=== PATIENT | female | born 1975 | race African-American/Black ===

== ENCOUNTER 2024-10-30 16:28 | Inpatient (IN) | payer OTHER ==
[~2024-10-30] VITALS: Ht 160 cm; Wt 75.5 kg
--- NOTE | 2024-10-30 16:44 | ED.PDOC ---
HPI (NEURO) HPI Comments 49 y.o female with PMHx of HTN, presents to the ED for a chief complaint of dizziness/lightheadedness associated with blurred vision that started 2 hours ago. Patient reports feeling near syncopal episodes with no room spinning effect. Patient had similar episode 1.5 months ago and states BP has been high the pas couple of days. Patient presents with a BP of 188/112 with a repeat at 192/115. Patient denies any recent head trauma, chest pain, palpitations, nausea, vomiting, diarrhea. Time Seen by MD: 16:35 Reviewed Notes: Nurses Notes, Medications, Allergies Information Source: Patient Mode of Arrival: Ambulatory Severity: Moderate Timing: Hours (2) Duration: Since onset Onset: At rest Circumstances: Spontaneous Symptoms: Faintness, Change of vision History of: Hypertension Past Medical History PAST MEDICAL HISTORY: HTN Surgical History: DIGITAL ASSET MANAGER History: No Pertinent DIGITAL ASSET MANAGER History Family History Family History: Family hx of HTN Social History Smoker: Non-Smoker Alcohol: Occasionally Drugs: Denies Drug Use Lives In: Home Constitutional: denies: chills, diaphoresis, fatigue, fever, malaise, sweats, weakness, others EENTM: reports: blurred vision; denies: double vision, ear bleeding, ear discharge, ear drainage, ear pain, ear ringing, eye pain, eye redness, hearing loss, mouth pain, mouth swelling, nasal discharge, nose bleeding, nose congestion, nose pain, photophobia, tearing, throat pain, throat swelling, voice changes, others Respiratory: denies: cough, hemoptysis, orthopnea, SOB at rest, shortness of breath, SOB with excertion, stridor, wheezing, others Cardiovascular: reports: lightheadedness; denies: chest pain, dizzy spells, diaphoresis, Dyspnea on exertion, edema, irregular heart beat, left arm pain, palpitations, PND, syncope, others Gastrointestinal: denies: abdomen distended, abdominal pain, blood streaked bowels, constipated, diarrhea, dysphagia, difficulty swallowing, hematemesis, melena, nausea, poor appetite, poor fluid intake, rectal bleeding, rectal pain, vomiting, others Genitourinary: denies: abnormal vagina bleeding, burning, dyspareunia, dysuria, flank pain, frequency, hematuria, incontinence, pain, , vagina discharge, urgency, others Neurological: reports: dizziness; denies: fainting, headache, left sided numbness, left sided weakness, numbness, paresthesia, pre-existing deficit, right sided numbness, right sided weakness, seizure, speech problems, tingling, tremors, weakness, others Musculoskeletal: denies: back pain, gout, joint pain, joint swelling, muscle pain, muscle stiffness, neck pain, others Integumetry: denies: bruises, change in color, change in hair/nails, dryness, laceration, lesions, lumps, rash, wounds, others Allergic/Immunocompromised: denies: Difficulty Healing, Frequent Infections, Hives, Itching, others Hematologic/Lymphatic: denies: anemia, blood clots, easy bleeding, easy bruising, swollen glands, others Endocrine: denies: excessive hunger, excessive sweating, excessive thirst, excessive urination, flushing, intolerance to cold, intolerance to heat, unexplained weight gain, unexplained weight loss, others Psychiatric: denies: anxiety, bipolar disorder, depression, hopeless, panic disorder, schizophrenia, sleepless, suicidal, others All Other Systems: Reviewed and Negative Physical Exam General Appearance: Moderate Distress HEENT: Normal ENT Inspection, Pharynx Normal, TMs Normal Neck: Full Range of Motion, Non-Tender, Normal, Normal Inspection Respiratory: Chest Non-Tender, Lungs Clear, No Accessory Muscle Use, No Respiratory Distress, Normal Breath Sounds Cardiovascular: No Edema, No JVD, No Murmur, No Gallop, Normal Peripheral Pulses, Regular Rate/Rhythm Breast Exam: Deferred Gastrointestinal: No Organomegaly, Non Tender, No Pulsatile Mass, Normal Bowel Sounds, Soft Genitalia: Deferred Pelvic: Deferred Rectal: Deferred Extremities: No calf tenderness, Normal capillary refill, Normal inspection, Normal range of motion, Non-tender, No pedal edema Musculoskeletal : Apperance: Normal Neurologic: Alert, human performance technologist II-XII nml as Tested, No Motor Deficits, Normal Affect, Normal Mood, No Sensory Deficits Cerebellar Function: Normal Reflexes: Normal Skin: Dry, Normal Color, Warm Lymphatic: No Adenopathy EKG EKG : Pulse Rate (adult): 110 Cardiac Rhythm: ST Was a procedure done? Was a procedure done?: No Differential Diagnosis (SZ) Seizure: N/A General Weakness: Dehydration, Electrolyte imbalance, Meniere's disease, Vertigo: central, Vertigo: peripheral, Vestibular neuronitis X-Ray, Labs, Meds, VS Vital Signs Date Time Temp Pulse Resp B/P (MAP) Pulse Ox O2 Delivery O2 Flow Rate FiO2 10/30/24 18:49 142/96 10/30/24 17:15 180/104 10/30/24 16:51 110 10/30/24 16:48 110 10/30/24 16:46 98.0 130 18 188/112 (137) 97 98.0 Lab Test 10/30/24 18:46 10/30/24 17:30 Range/Units Urine Color Colorless Yellow Urine Clarity Clear Clear Urine pH 6.0 5.0-9.0 Urine Specific [place] 1.006 1.001-1.035 Urine Protein Negative Negative Urine Ketones Negative Negative Urine Blood 1+ H Negative /uL Urine Nitrite Negative Negative Urine Bilirubin Negative Negative Urine Urobilinogen Normal Negative mg/dL Urine Leukocyte Esterase Negative Negative /uL Urine RBC 2 0 - 4 /hpf Urine Microscopic WBC 1 0-5 /HPF Urine Squamous Epithelial Cells Few <5 /hpf Urine Bacteria None seen None Seen /hpf Urine Glucose Normal Normal mg/dL White Blood Count 6.1 4.4-10.8 10^3/uL Red Blood Count 4.62 4.0-5.20 10^6/uL Hemoglobin 14.5 12.2-16.2 g/dL Hematocrit 41.7 36.0-46.0 % Mean Corpuscular Volume 90.4 80.0-100.0 fL Mean Corpuscular Hemoglobin 31.3 28.0-32.0 pg Mean Corpuscular Hemoglobin Concent 34.7 32.0-36.0 g/dL Red Cell Distribution Width 15.0 H 11.8-14.3 % Platelet Count 318 140-450 10^3/uL Mean Platelet Volume 7.6 6.9-10.8 fL Neutrophils (%) (Auto) 83.0 H 37.0-80.0 % Lymphocytes (%) (Auto) 11.3 10.0-50.0 % Monocytes (%) (Auto) 4.5 0.0-12.0 % Eosinophils (%) (Auto) 1.0 0.0-7.0 % Basophils (%) (Auto) 0.2 0.0-2.0 % Neutrophils # (Auto) 5.1 1.6-8.6 10 ^3/uL Lymphocytes # (Auto) 0.7 0.4-5.4 10 ^3/uL Monocytes # (Auto) 0.3 0-1.3 10 ^3/uL Eosinophils # (Auto) 0.1 0-0.8 10 ^3/uL Basophils # (Auto) 0 0-0.2 10 ^3/uL Nucleated Red Blood Cells 0.2 % Sodium Level 139 136-145 mmol/L Potassium Level 3.2 L 3.5-5.1 mmol/L Chloride Level 101 98-107 mmol/L Carbon Dioxide Level 26 20-31 mmol/L Anion Gap 12 5-15 Blood Urea Nitrogen 7 L 9-23 mg/dL Creatinine 0.70 0.550-1.02 mg/dL Glomerular Filtration Rate Calc 107 >90 mL/min BUN/Creatinine Ratio 10.0 10.0-20.0 Serum Glucose 115 H 74-106 mg/dL Calcium Level 10.6 H 8.7-10.4 mg/dL Current Medications Medications (Trade) Dose Ordered Sig/Samara Route Start Time Stop Time Status Last Admin Clonidine HCl (Catapres Tablet) 0.2 mg ONCE ONCE PO 10/30/24 17:00 10/30/24 17:01 DC 10/30/24 17:15 CT HEAD IMPRESSION: No acute intracranial abnormality. The patient's blood pressure has remained elevated despite the clonidine The CBC and chemistry panel are within normal limits The troponin level was ordered because the patient is having some chest pain The urine test is negative At this time, the patient is being admitted She is still saying that she is having some heaviness on her chest. The patient will be also given aspirin. Images Reviewed?: Images reviewed and evaluated by me Time of 1ST Reevaluation: 16:44 Reevaluation 1ST: Unchanged Patient Education/Counseling: Diagnosis, Treatment, Prognosis Family Education/Counseling: Diagnosis, Treatment, Prognosis Departure 1 Departure Time of Disposition: 20:43 Impression: Primary Impression: Accelerated hypertension Additional Impression: Acute chest pain Disposition: ADMITTED INPATIENT Admit to: Tele Condition: Fair Critical Care Note Critical Care Time?: Yes (45 min-critical care time only) Stability Stability form required: Yes Unstable for transfer: Telemetry monitoring (Telemetry monitoring required), ED Physician Assesment (Clinical assesment) I personally scribed for JARVIS LR MD ([email or web address]) on 10/30/24 at 16:44. Electronically submitted by Liss Lau ([facility]). I personally scribed for JARVIS LR MD ([email or web address]) on 10/30/24 at 16:51. Electronically submitted by Liss Lau ([facility]). I personally scribed for JARVIS LR MD ([email or web address]) on 10/30/24 at 17:29. Electronically submitted by Liss Lau ([facility]). JARVIS LR MD Oct 30, 2024 16:44
--- NOTE | 2024-10-30 16:49 | ECG ---
[facility] Test Date: 2024-10-30 Test Time: 16:48:29 Pat Name: LE OLIVER Department: [facility] ED Patient ID: [id number] Room: 0222T Gender: F Pelt Grader: gp : 1975 Requested By: JARVIS LR Order Number: [id number] Reading MD: Oscar Bowers Measurements Intervals [place] Rate: 110 P: 58 TX: 171 QRS: 62 QRSD: 99 T: 18 QT: 346 QTc: 469 Interpretive Statements Sinus tachycardia Anterior infarct, age indeterminate Electronically Signed On 11-01-2024 17:50:45 PDT by Oscar Bowers Please click the below link to view image of tracing.
--- NOTE | 2024-10-30 17:28 | DVH ---
CLINICAL HISTORY: dizziness TECHNIQUE: Helical imaging carried out from skull base to vertex without intravenous contrast. This e xam was performed according to our departmental dose optimization program. Up-to-date CT equipment an d radiation dose reduction techniques are utilized as appropriate. CTDIVol: 54.8 mGy DLP: 970.44 mGy-cm WID: COMPARISON: None FINDINGS: The ventricles and subarachnoid spaces are normal in size and configuration. There is no midline katia ft or mass effect. The funez white matter interfaces are maintained. The basal cisterns are patent. Th ere is no evidence of acute intracranial hemorrhage or extra-axial fluid collection. The mastoid air cells and visualized paranasal sinuses are well-aerated. IMPRESSION: No acute intracranial abnormality.
[2024-10-30 18:08] LABS: Chloride 101 mmol/L (98-107); Sodium 139 mmol/L (136-145)
[2024-10-30 18:09] LABS: Anion Gap 12 (5-15); Carbon Dioxide 26 mmol/L (20-31)
[2024-10-30 18:14] LABS: BUN/Creatinine Ratio 10.0 (10.0-20.0)
[2024-10-30 18:25] LABS: Blood Urea Nitrogen 7 mg/dL (9-23); Calcium 10.6 mg/dL (8.7-10.4); Glucose 115 mg/dL (74-106); Potassium 3.2 mmol/L (3.5-5.1)
[2024-10-30 18:30] LABS: Hematocrit 41.7 % (36.0-46.0); Hemoglobin 14.5 g/dL (12.2-16.2); Mean Corpuscular Hemoglobin 31.3 pg (28.0-32.0); Mean Corpuscular Volume 90.4 fL (80.0-100.0); Nucleated Red Blood Cells % 0.2 %
[2024-10-30 20:04] LABS: Urine Protein, UAD Negative (Negative)
[2024-10-30] MEDS: NITROGLYCERIN 2% OINT 1GM PKG TD ONE (22:26)
[2024-10-30] MEDS ORDERED: ONDANSETRON HCL 4 MG/2 ML VIAL IV PRN (23:45)
--- NOTE | 2024-10-30 23:49 | DVHHPRES ---
History of Present Illness Resident Creating Document: AGATA HALL RESIDENT History of Present Illness Sarah Chu is a 49 y.o female with past medical history of of hypertension. The patient presented to the ED for history of 1 day of dizziness, blurry vision and chest palpitation, associated with lightheadedness and a near syncope episode. The patient had similar episode 1 months ago and states that her blood pressure readings at home have been high lately. Patient report that she is compliant with In the ED the BP was 188/112 with a repeat at 192/115 HR 110. The patient denies chest pain, nausea, fever, chills, vomiting, diarrhea or other symptoms. Cardiovascular: HTN Past Surgical History: Family History: None Smoke: No ALCOHOL: occassional Drugs: None Lives: with Family Review of Systems Constitutional: No: Fever, Chills, Sweats, Weakness, Malaise, Other Eyes: No: Pain, Vision change, Conjunctivae inflammation, Eyelid inflammation, Other, Redness ENT: No: Ear pain, Ear discharge, Nose pain, Nose discharge, Nose congestion, Mouth pain, Mouth swelling, Throat pain, Throat swelling, Other Respiratory: No: Cough, Dry, Shortness of breath, SOB with excertion, Wheezing, Hemoptysis, Pleuritic Pain, Sputum, Wheezing, Other Cardiovascular: Palpitations, Lt Headedness Gastrointestinal: No: Nausea, Vomiting, Abdominal Pain, Diarrhea, Constipation, Melena, Hematochezia, Other Genitourinary: No Dysuria, No Frequency, No Incontinence, No Hematuria, No Retention, No Other Musculoskeletal: No: other, neck pain, shoulder pain, arm pain, back pain, hand pain, leg pain, foot pain Skin: No: Rash, Lesions, Jaundice, Bruising, Other Neurological: No: Weakness, Numbness, Incoordination, Change in speech, Confusion, Seizures, Other Allergies: Coded Allergies: NO KNOWN ALLERGIES (Unverified , 10/30/24) Medications Current Medications Medications Dose Ordered Sig/Samara Route Start Time Stop Time Status Last Admin Dose Admin Ondansetron HCl 4 mg Q4HP PRN IV 10/30/24 23:45 UNV Enoxaparin Sodium 40 mg DAILY SC 10/31/24 10:00 UNV Pantoprazole Sodium 40 mg DAILY PO 10/31/24 10:00 UNV Metoprolol Succinate 50 mg BID PO 10/31/24 10:00 UNV Amlodipine Besylate 10 mg DAILY PO 10/31/24 10:00 UNV Exam Vital Signs Vital Signs Date Time Temp Pulse Resp B/P (MAP) Pulse Ox O2 Delivery O2 Flow Rate FiO2 10/30/24 22:29 98 16 94 Room Air 10/30/24 22:29 97.8 132/93 (106) 97.8 General Appearance: Alert, Oriented X3, Cooperative, No acute distress HEENT: Atraumatic, PERRLA, Mucous membr. moist/pink Respiratory: Clear to auscultation, Normal air movement Cardiovascular: Regular rate, Normal S1, Normal S2, No murmurs, Other Abdominal: Normal bowel sounds, Soft, No tenderness Extremities: No clubbing, No cyanosis, No edema, No tenderness/swelling Skin: No rashes, No breakdown, No significant lesion Neuro: Normal gait, Normal speech, Strength at 5/5 X4 ext, Normal tone, Sensation intact, Cranial nerves 3-12 NL Psych/Mental Status: Mental status NL, Mood NL Labs/Xrays Labs Test 10/30/24 20:58 10/30/24 18:46 10/30/24 17:30 Range/Units Troponin I High Sensitivity < 3 L </=34 ng/L Urine Color Colorless Yellow Urine Clarity Clear Clear Urine pH 6.0 5.0-9.0 Urine Specific [place] 1.006 1.001-1.035 Urine Protein Negative Negative Urine Ketones Negative Negative Urine Blood 1+ H Negative /uL Urine Nitrite Negative Negative Urine Bilirubin Negative Negative Urine Urobilinogen Normal Negative mg/dL Urine Leukocyte Esterase Negative Negative /uL Urine RBC 2 0 - 4 /hpf Urine Microscopic WBC 1 0-5 /HPF Urine Squamous Epithelial Cells Few <5 /hpf Urine Bacteria None seen None Seen /hpf Urine Glucose Normal Normal mg/dL White Blood Count 6.1 4.4-10.8 10^3/uL Red Blood Count 4.62 4.0-5.20 10^6/uL Hemoglobin 14.5 12.2-16.2 g/dL Hematocrit 41.7 36.0-46.0 % Mean Corpuscular Volume 90.4 80.0-100.0 fL Mean Corpuscular Hemoglobin 31.3 28.0-32.0 pg Mean Corpuscular Hemoglobin Concent 34.7 32.0-36.0 g/dL Red Cell Distribution Width 15.0 H 11.8-14.3 % Platelet Count 318 140-450 10^3/uL Mean Platelet Volume 7.6 6.9-10.8 fL Neutrophils (%) (Auto) 83.0 H 37.0-80.0 % Lymphocytes (%) (Auto) 11.3 10.0-50.0 % Monocytes (%) (Auto) 4.5 0.0-12.0 % Eosinophils (%) (Auto) 1.0 0.0-7.0 % Basophils (%) (Auto) 0.2 0.0-2.0 % Neutrophils # (Auto) 5.1 1.6-8.6 10 ^3/uL Lymphocytes # (Auto) 0.7 0.4-5.4 10 ^3/uL Monocytes # (Auto) 0.3 0-1.3 10 ^3/uL Eosinophils # (Auto) 0.1 0-0.8 10 ^3/uL Basophils # (Auto) 0 0-0.2 10 ^3/uL Nucleated Red Blood Cells 0.2 % Sodium Level 139 136-145 mmol/L Potassium Level 3.2 L 3.5-5.1 mmol/L Chloride Level 101 98-107 mmol/L Carbon Dioxide Level 26 20-31 mmol/L Anion Gap 12 5-15 Blood Urea Nitrogen 7 L 9-23 mg/dL Creatinine 0.70 0.550-1.02 mg/dL Glomerular Filtration Rate Calc 107 >90 mL/min BUN/Creatinine Ratio 10.0 10.0-20.0 Serum Glucose 115 H 74-106 mg/dL Calcium Level 10.6 H 8.7-10.4 mg/dL SEPSIS Sepsis Screen Date sepsis recognized/suspect: Oct 30, 2024 Time Sepsis recognized/suspect: 2230 Recent Procedure: No On Antibiotic Therapy: No Respiratory Rate >20: No Heart Rate >90: Yes Temp<36 C (96.8 F) or >38.3 C: No SBP <90 or MAP <65 mmHG: No New Acute Mental Status Change: No Is the patient on CPAP, BIPAP,: No Physician Orders Head Without Contrast (10/30/24 16:46) Troponin-I Hs (10/30/24 23:45) Admit (10/30/24 23:33) Code Status (10/30/24 23:33) Vital Signs .PER UNIT PROTOCOL (10/30/24 23:33) Review Orders With Adm. (10/30/24 23:33) Bedrest With Bathroom Privileg (10/30/24 23:33) Notify Md Of Changes From Base (10/30/24 23:33) Advance Directive (10/30/24 23:33) Patient Condition (10/30/24:33) Allergies (10/30/24:) Ondansetron Hcl (Zofran) (10/30/24 23:45) Enoxaparin Sodium (Lovenox) (10/31/24 10:00) Notify Md Of Changes From Base (10/30/24 23:33) Ice Skating Coach For 24 Hours (10/30/24:33) Rhythm Strips Once Every Shift (10/30/24 23:33) Pantoprazole Tablet (Protonix Tablet) (10/31/24 10:00) Potassium Effervesent Tab (Klor-Con/Ef) (10/30/24 23:45) Complete Blood Count (10/31/24 04:00) Basic Metabolic Panel (10/31/24 04:00) Chest Xray 1 View (10/30/24 23:33) Metoprolol Xl Succinate (Toprol Xl) (10/31/24 10:00) Amlodipine Tablet (Norvasc Tablet) (10/31/24 10:00) B-Type Natriuretic Peptide (10/30/24 23:33) Drug Screen (10/30/24 23:47) Urinalysis (10/30/24 23:47) Vital Signs Date Time Temp Pulse Resp B/P (MAP) Pulse Ox O2 Delivery O2 Flow Rate FiO2 10/30/24 22:29 98 16 94 Room Air 10/30/24 22:29 97.8 98 16 132/93 (106) 94 97.8 10/30/24 18:49 142/96 10/30/24 17:15 180/104 10/30/24 16:51 110 10/30/24 16:48 110 10/30/24 16:46 98.0 130 18 188/112 (137) 97 98.0 Laboratory Tests Test 10/30/24 17:30 White Blood Count 6.1 10^3/uL (4.4-10.8) Medications Medications Dose Ordered Sig/Samara Route Start Time Stop Time Status Last Admin Dose Admin Aspirin 162 mg ONCE ONCE PO 10/30/24 20:45 10/30/24 20:46 DC 10/30/24 22:26 162 MG Clonidine HCl 0.2 mg ONCE ONCE PO 10/30/24 17:00 10/30/24 17:01 DC 10/30/24 17:15 0.2 MG Assessment/Plan Assessment/Plan #Hypertensive urgency BP 192/115 Clonidine 0.2mg Troponins BNP EKG Chest X-ray #Uncontrolled hypertension Amlodipine 10mg po qd Metoprolol succinate 50mg bid #Hypokalemia Potassium correction Cardiac diet DVT prophylaxis PUD prophylaxis Protonic Goals of care discussed with the patient > 35 min. Discussed plan of care with Dr. Gonzalez Code status: Full code PCP: Jose Antonio Plan discussed with: Patient and , patients agrees with the plan. Plan discussed with: Patient, Spouse My Orders Orders - AGATA HALL RESIDENT Procedure Category Date Status Time Admit ADMIT 10/30/24 Transmitted 23:33 Code Status CODE 10/30/24 Transmitted 23:33 Vital Signs [facility] 10/30/24 In Process 23:33 Review Orders With [facility] 10/30/24 In Process Adm. 23:33 Bedrest With Bathroom [facility] 10/30/24 In Process Privileg 23:33 Notify Of Changes [facility] 10/30/24 In Process From Base 23:33 Advance Directive [facility] 10/30/24 In Process 23:33 Patient Condition ORDERS 10/30/24 Transmitted 23:33 Allergies [facility] 10/30/24 In Process 23:33 Ondansetron Hcl [facility] 10/30/24 Logged (Zofran) 23:45 Enoxaparin Sodium PHA 10/31/24 Logged (Lovenox) 10:00 Notify Of Changes [facility] 10/30/24 In Process From Base 23:33 Ice Skating Coach For [facility] 10/30/24 In Process 24 Hours 23:33 Rhythm Strips Once [facility] 10/30/24 In Process Every Shift 23:33 Pantoprazole Tablet PHA 10/31/24 Logged (Protonix Tablet) 10:00 Potassium Effervesent PHA 10/30/24 Logged Tab (Klor-Con/Ef) 23:45 Complete Blood Count LAB 10/31/24 Verified 04:00 Basic Metabolic Panel LAB 10/31/24 Verified 04:00 Chest Xray 1 View XY 10/30/24 Logged 23:33 Metoprolol Xl PHA 10/31/24 Logged Succinate (Toprol Xl) 10:00 Amlodipine Tablet PHA 10/31/24 Logged (Norvasc Tablet) 10:00 B-Type Natriuretic LAB 10/30/24 Logged Peptide 23:33 Drug Screen LAB 10/30/24 Transmitted 23:47 Urinalysis LAB 10/30/24 Transmitted 23:47 Problem List: (1) Hypertensive urgency Common Visit Codes: [id number] INP/OBS CARE (HIGH) Secondary Visit Codes: [id number] CARE PLAN 30 MINUTES AGATA HALL RESIDENT Oct 30, 2024 23:49
[2024-10-31] VITALS (9 sets, daily range): BP systolic 134–155; BP diastolic 69–97; PULSE 63–89; RESP 16–18; TEMP 97.4–98.3; O2SAT 95–100
[2024-10-31] MEDS: POTASSIUM EFFERVESENT TAB 25 MEQ GT ONE (00:56)
--- NOTE | 2024-10-31 01:12 | DVH ---
CHEST RADIOGRAPH Indication: Hypertensive urgency Technique: Single frontal view of the chest was obtained COMPARISON: None FINDINGS: Lines and Tubes: None Lungs: Clear Pleura: No effusion. No pneumothorax. Cardiomediastinal contours: Unremarkable Bones: Unremarkable IMPRESSION: 1. No acute disease.
[2024-10-31 05:35] LABS: Hematocrit 38.1 % (36.0-46.0); Hemoglobin 13.2 g/dL (12.2-16.2); Mean Corpuscular Hemoglobin 31.1 pg (28.0-32.0); Mean Corpuscular Volume 89.6 fL (80.0-100.0); Nucleated Red Blood Cells % 0.2 %
[2024-10-31 05:57] LABS: Chloride 102 mmol/L (98-107); Sodium 140 mmol/L (136-145)
[2024-10-31 05:58] LABS: Anion Gap 12 (5-15); Carbon Dioxide 26 mmol/L (20-31)
[2024-10-31 05:59] LABS: Calcium 9.4 mg/dL (8.7-10.4)
[2024-10-31 06:03] LABS: BUN/Creatinine Ratio 11.4 (10.0-20.0); Glucose 89 mg/dL (74-106)
[2024-10-31 06:10] LABS: Blood Urea Nitrogen 5 mg/dL (9-23); Potassium 3.3 mmol/L (3.5-5.1)
[2024-10-31] MEDS ORDERED: AMLO1TAB23 PO (06:22)
[2024-10-31] MEDS: PANTOPRAZOLE 40 MG TAB PO SCH (09:58)
[2024-10-31] MEDS ORDERED: ENOXAPARIN SOD 40 MG/0.4 ML SYRINGE SC SCH (10:00)
[2024-10-31] MEDS ORDERED: METOPROLOL SUCCINATE XL 50 MG TAB PO SCH ×2 (10:00)
[2024-10-31 10:12] LABS: Triglycerides 142 mg/dL (< 150)
[2024-10-31 10:18] LABS: Cholesterol 219 mg/dL (< 200); HDL Cholesterol 86 mg/dL (40-59)
[2024-10-31] MEDS: POTASSIUM CHL 20 Meq TABLET PO ONE (12:00)
[2024-10-31] MEDS: MAGNESIUM OXIDE 400 MG TAB PO ONE (14:21)
[2024-10-31] MEDS: ERGOCALCIFEROL 50,000 UNIT(1.25MG) CAP PO SCH (14:21)
[2024-10-31] MEDS ORDERED: hydrALAZINE HCL 20 MG/ML VL IV PRN (16:00)
--- NOTE | 2024-10-31 16:50 | DVHPNRES ---
Progress Note Date Seen: Oct 31, 2024 Resident Creating Document: CHICA MCCONNELL RESIDENT Medical Necessity Reason Pt with a Central, PICC or Fol: No Subjective Review of Systems 49-year-old female Sarah Chu with a past medical of hypertension for 1 year on amlodipine 10 mg he yesterday to the emergency [facility] with complains of blurring of vision and dizziness. Patient reports that she felt blurring of vision in the afternoon and after an hour she had dizziness while walking. Patient laid down with the dizziness would not go away so she came to the emergency room. Patient denies any headache, shortness of breath, chest pain, nausea, vomiting, high blood pressure Cough. On arrival to the ED her blood pressure was 188/ 112 G. Patient reports that this has happened a month ago as well. She usually checks her blood pressure alternate days which is the 140s/90s. PMH: Hypertension, asthma PSH: 1 section Social history: Patient denies smoking or taking any drugs. She reports drinking on and off on alternate days Tory as/cocktail. Family history: Reviewed and noncontributory to the case Allergies: None ROS: Patient was seen and examined by me at the bedside. Overnight events were reviewed. Patient reports that she is feeling better and that the blurring of vision is gone. She says she is able to walk normally. Rest of the ROS is negative.We ave ordered a lipid panel today. Objective vital signs Vital Sign Date Time Temp Pulse Resp B/P (MAP) Pulse Ox O2 Delivery O2 Flow Rate FiO2 10/31/24 16:14 98 Room Air* 0 21 10/31/24 12:47 80 155/97 (116) 10/31/24 09:00 98.1 98.1 10/31/24 05:00 16 medications Current Medications Medications Dose Ordered Sig/Samara Route Start Time Stop Time Status Last Admin Dose Admin Ondansetron HCl 4 mg Q4HP PRN IV 10/30/24 23:45 Pantoprazole Sodium 40 mg DAILY PO 10/31/24 10:00 10/31/24 09:58 40 MG Amlodipine Besylate 10 mg DAILY PO 10/31/24 10:00 10/31/24 09:58 10 MG Metoprolol Succinate 50 mg BID PO 10/31/24 10:00 Hold Ergocalciferol 50,000 unit Q7D PO 10/31/24 13:30 10/31/24 14:21 50,000 UNIT Lisinopril 2.5 mg DAILY PO 11/01/24 10:00 Hydralazine HCl 10 mg Q6HPRN PRN IV 10/31/24 16:00 Examination Pt is lying on bed General Appearance: Alert, Oriented X3, Cooperative, Not in acute distress HEENT: Atraumatic, Mucous membranes moist/pink Respiratory: Clear to auscultation, Normal air movement, No added sounds Cardiovascular: Regular rate, Normal S1, Normal S2, No murmurs Abdominal: Active bowel sounds, Soft, no distention, no tenderness Extremities: No edema, Normal pulses, No tenderness/swelling Skin: No Significant rash, except past surgical scars Neuro: Normal speech, sensorimotor deficits none Psych/Mental Status: Mental status NL, Mood NL Nurse was there as paint mixer hand during examination laboratory and microbiology Laboratory Tests 10/31/24 04:29 Test 10/31/24 04:29 Range/Units Serum Glucose 89 74-106 mg/dL Labs and/or images reviewed: Labs reviewed by me, Image(s) reviewed by me Problem List/Assessment/Plan Problem List/Assessment/Plan #Hypertensive urgency -BP 192/115 -Clonidine 0.2mg -Troponins normal -BNP 3.64 -EKG Sinus tachycardia -Chest X-ray: No acute disease. -IV hydralazine p.r.n. if SBP> 170 #Uncontrolled hypertension -Amlodipine 10mg po qd -lisinopril 2.5 mg od #Hypokalemia -Potassium correction # hyperlipidemia -ldl 121, cholesterol 219, HDL 86, triglyceride 142 - 10 year ASCVD risk 8.3 5% - atorvastatin 40 mg p.o. daily HS GI prophylaxis: Protonix 40 mg DVT prophylaxis: Lovenox 40 mg Diet: Cardiac diet Goals of care discussed with the patient for more than 27 minutes: Full code status Case discussed with Dr. Friend patient and nurse. Plan discussed with: Patient, Other (rn) My Orders My Orders Orders - CHICA MCCONNELL RESIDENT Procedure Category Date Status Time Lisinopril Tablet PHA 11/01/24 In Process (Zestril Tablet) 10:00 Hydralazine Injection PHA 10/31/24 In Process (Apresoline Inject 16:00 Date of Service: Oct 31, 2024 Billing Provider: FRIDA MAY MD Common Visit Codes: [id number] INP/OBS CARE(HIGH) CHICA MCCONNELL RESIDENT Oct 31, 2024 16:50 FRIDA MAY MD Nov 01, 2024 02:03
[2024-10-31] MEDS: LISINOPRIL 5 MG TAB PO ONE (18:40)
[2024-10-31] MEDS: ATORVASTATIN 20 MG TAB PO SCH (22:21)
[2024-11-01 01:00] VITALS: BP 114/76; PULSE 81; RESP 16; TEMP 98.1; O2SAT 98
[2024-11-01 07:02] LABS: Albumin 4.3 g/dL (3.2-4.8); Alkaline Phosphatase 96 U/L (46-116); Anion Gap 9 (5-15); BUN/Creatinine Ratio 10.6 (10.0-20.0); Calcium 9.9 mg/dL (8.7-10.4); Carbon Dioxide 27 mmol/L (20-31); Chloride 104 mmol/L (98-107); Glucose 102 mg/dL (74-106); Potassium 3.7 mmol/L (3.5-5.1); Sodium 140 mmol/L (136-145); Total Protein 6.6 g/dL (5.7-8.2)
[2024-11-01 07:03] LABS: Alanine Aminotransferase 117 U/L (7-40); Bilirubin, Total 1.1 mg/dL (0.2-1.0); Blood Urea Nitrogen 7 mg/dL (9-23)
[2024-11-01 08:00] VITALS: PULSE 88; O2SAT 97
[2024-11-01 09:00] VITALS: BP 129/96; PULSE 73; RESP 16; TEMP 98.4; O2SAT 95
[2024-11-01] MEDS: LISINOPRIL 5 MG TAB PO SCH (09:55)
--- NOTE | 2024-11-01 11:13 | DVHDSRES ---
Discharge Summary Date of Admission Resident Creating Document: CHICA MCCONNELL RESIDENT Oct 30, 2024 at 23:33 Date of Discharge: Nov 01, 2024 Admitting Diagnosis #Hypertensive urgency Labs/Diagnostic Data: Laboratory Results Test 11/01/24 06:10 10/31/24 04:29 10/30/24 23:55 10/30/24 18:46 Sodium Level 140 mmol/L (136-145) Potassium Level 3.7 mmol/L (3.5-5.1) Chloride Level 104 mmol/L (98-107) Carbon Dioxide Level 27 mmol/L (20-31) Anion Gap 9 (5-15) Blood Urea Nitrogen 7 mg/dL (9-23) Creatinine 0.66 mg/dL (0.550-1.02) Glomerular Filtration Rate Calc 108 mL/min (>90) BUN/Creatinine Ratio 10.6 (10.0-20.0) Serum Glucose 102 mg/dL (74-106) Calcium Level 9.9 mg/dL (8.7-10.4) Total Bilirubin 1.1 mg/dL (0.2-1.0) Aspartate Amino Transferase (AST) 69 U/L (13-40) Alanine Aminotransferase (ALT) 117 U/L (7-40) Alkaline Phosphatase 96 U/L (46-116) Total Protein 6.6 g/dL (5.7-8.2) Albumin 4.3 g/dL (3.2-4.8) White Blood Count 5.9 10^3/uL (4.4-10.8) Red Blood Count 4.25 10^6/uL (4.0-5.20) Hemoglobin 13.2 g/dL (12.2-16.2) Hematocrit 38.1 % (36.0-46.0) Mean Corpuscular Volume 89.6 fL (80.0-100.0) Mean Corpuscular Hemoglobin 31.1 pg (28.0-32.0) Mean Corpuscular Hemoglobin Concent 34.7 g/dL (32.0-36.0) Red Cell Distribution Width 15.0 % (11.8-14.3) Platelet Count 271 10^3/uL (140-450) Mean Platelet Volume 8.0 fL (6.9-10.8) Neutrophils (%) (Auto) 69.2 % (37.0-80.0) Lymphocytes (%) (Auto) 20.9 % (10.0-50.0) Monocytes (%) (Auto) 6.2 % (0.0-12.0) Eosinophils (%) (Auto) 3.2 % (0.0-7.0) Basophils (%) (Auto) 0.5 % (0.0-2.0) Neutrophils # (Auto) 4.1 10 ^3/uL (1.6-8.6) Lymphocytes # (Auto) 1.2 10 ^3/uL (0.4-5.4) Monocytes # (Auto) 0.4 10 ^3/uL (0-1.3) Eosinophils # (Auto) 0.2 10 ^3/uL (0-0.8) Basophils # (Auto) 0 10 ^3/uL (0-0.2) Nucleated Red Blood Cells 0.2 % Hemoglobin A1c 5.3 % A1C (<5.7) Magnesium Level 1.8 mg/dL (1.6-2.6) Triglycerides Level 142 mg/dL (< 150) Cholesterol Level 219 mg/dL (< 200) LDL Cholesterol 121 mg/dL (< 100) HDL Cholesterol 86 mg/dL (40-59) Vitamin B12 Level 636 pg/mL (211-911) Vitamin D 25-Hydroxy 9.7 ng/mL (30.0-100) Thyroid Stimulating Hormone (TSH) 3.77 uIU/mL (0.55-4.78) Troponin I High Sensitivity < 3 ng/L (</=34) Urine Color Colorless (Yellow) Urine Clarity Clear (Clear) Urine pH 6.0 (5.0-9.0) Urine Specific [place] 1.006 (1.001-1.035) Urine Protein Negative (Negative) Urine Ketones Negative (Negative) Urine Blood 1+ /uL (Negative) Urine Nitrite Negative (Negative) Urine Bilirubin Negative (Negative) Urine Urobilinogen Normal mg/dL (Negative) Urine Leukocyte Esterase Negative /uL (Negative) Urine RBC 2 /hpf (0 - 4) Urine Microscopic WBC 1 /HPF (0-5) Urine Squamous Epithelial Cells Few /hpf (<5) Urine Bacteria None seen /hpf (None Seen) Urine Glucose Normal mg/dL (Normal) Test 10/30/24 17:30 B-Type Natriuretic Peptide 3.64 pg/mL (0-100) Other Laboratory Tests 11/01/24 06:10 10/31/24 04:29 Brief Hx & Hospital Course: 49-year-old female Sarah Chu with a past medical of hypertension for 1 year on amlodipine 10 mg he yesterday to the emergency [facility] with complains of blurring of vision and dizziness. Patient reports that she felt blurring of vision in the afternoon and after an hour she had dizziness while walking. Patient laid down with the dizziness would not go away so she came to the emergency room. Patient denies any headache, shortness of breath, chest pain, nausea, vomiting, high blood pressure Cough. On arrival to the ED her blood pressure was 188/ 112 G. Patient reports that this has happened a month ago as well. She usually checks her blood pressure alternate days which is the 140s/90s. PMH: Hypertension, asthma PSH: 1 section Social history: Patient denies smoking or taking any drugs. She reports drinking on and off on alternate days Tory as/cocktail. Family history: Reviewed and noncontributory to the case Allergies: None brief history of hospitalization: Patient came in with hypertensive urgency with a high BP of 192/ 115 mmHg. A clonidine was given and troponins were measured which came back normal. BNP was 3.64. EKG showed sinus tachycardia. We did a chest x-ray that showed no acute disease. IV hydralazine PRN was ordered if SBP>170 mmHg. For her uncontrolled hypertension we continued amlodipine 10 mg p.o. and added lisinopril 2.5 mg OD. For patient's hypokalemia we corrected the potassium levels and for hyperlipidemia with LDL 121, cholesterol 219, HDL 86, triglyceride 142 the 10 year ASCVD risk was 8.35% so we started atorvastatin 40 mg p.o. daily HS. Patient is now stable for discharge. We are discharging her with continuation of her amlodipine 10 mg and have added lisinopril 2.5 mg once a day and rosuvastatin 20 mg HS daily. Patient has been counseled regarding the site of fact of lisinopril which might be cough, angioedema and if she has shortness of breath, throat closes up, there swelling to visit the emergency department right away. Patient has also been counseled regarding statin myopathy and to hydrate herself and Co Q10 [id number] medication will help. We have also counseled her regarding a low-salt diet, to decrease stressors and the need of adherence to medication. Patient has communicated understanding and is now stable for discharge. Pt is lying on bed General Appearance: Alert, Oriented X3, Cooperative, Not in acute distress HEENT: Atraumatic, Mucous membranes moist/pink Respiratory: Clear to auscultation, Normal air movement, No added sounds Cardiovascular: Regular rate, Normal S1, Normal S2, No murmurs Abdominal: Active bowel sounds, Soft, no distention, no tenderness Extremities: No edema, Normal pulses, No tenderness/swelling Skin: No Significant rash, except past surgical scars Neuro: Normal speech, sensorimotor deficits none Psych/Mental Status: Mental status NL, Mood NL Nurse was there as spray drier operator helper during examination Instructions: Follow up with PCP within a week Continue amlodipine 10 mg daily Lisinopril 2.5 mg once a day Rosuvastatin 20 mg per oral agents daily Operations or Procedures CHEST RADIOGRAPH IMPRESSION: No acute disease. PROCEDURE(s): HWOCT - HEAD WITHOUT CONTRAST IMPRESSION: No acute intracranial abnormality. Condition at Discharge: Stable Final Diagnosis/Problems List #Hypertensive urgency #Uncontrolled hypertension #Hypokalemia #Hyperlipidemia Discharge Disposition: Home Discharge Instruct/Medications Diet: Consistent carbohydrate, Cardiac 2g Na,low cholest Activity: No Restrictions, As Tolerated Follow Up/Referral: Follow up with PCP within a week Medications: Continue amlodipine 10 mg orally Tab Lisinopril 2.5 mg once a day daily Tab Rosuvastatin 20 mg at night daily Scheduled Amlodipine Besylate (Amlodipine Besylate), 1 TAB PO DAILY, (Reported) Ergocalciferol (Vitamin D 89756 Unit), 50,000 UNIT PO Q7D Lisinopril (Lisinopril), 2.5 MG PO DAILY Rosuvastatin Calcium (Crestor), 20 MG PO DAILY Discharge Statement: "Patient was advised to return to the ER or call 911 if any headaches, dizziness, shortness of breath, chest pain, abdominal pain, bleeding, fevers, or worsening of medical condition. Patient was counseled about treatment plan, medications, possible side effects, patientverbalized understanding. All questions were answered to the best of my ability. This discharge took greater then 30 minutes in planning, reviewing documentation, counseling the patient, and discussing with other team members." ASSESSMENT ASSESSMENT Assessment Hypertensive urgency Uncontrolled hypertension Hypokalemia Hyperlipidemia Date of Service: Nov 01, 2024 Billing Provider: FRIDA MAY MD Common Visit Codes: 17835-KRS/OBS DISCH DAY >30min CHICA MCCONNELL RESIDENT Nov 01, 2024 11:13 FRIDA MAY MD Nov 01, 2024 22:06
[2024-11-01] MEDS ORDERED: ERGO1CAP23 PO (11:58)
[2024-11-01] MEDS ORDERED: LISI-275 PO (11:58)
[2024-11-01] MEDS ORDERED: ROSU20TA14 PO (11:58)
[2024-11-01 13:00] VITALS: BP 122/84; PULSE 79; RESP 18; TEMP 98.1; O2SAT 100
[2024-11-01 16:47] VITALS: BP 125/96; PULSE 80; RESP 18; TEMP 36.7; O2SAT 96
[2024-11-01 16:58] VITALS: BP 114/76; PULSE 96; RESP 18; TEMP 99; O2SAT 96
== END 2024-11-01 17:58 | disposition home or self-care (01) | DRG 305 ==
LOC: ER 16:28 → OVERFLOW 23:33 → TELE-CENTR 10-31 15:54
PROVIDERS: ADMIT Student in an Organized Health Care Education/Training Program; ATTEND Student in an Organized Health Care Education/Training Program
DX: I16.0 Hypertensive urgency (principal); E87.6 Hypokalemia; E78.5 Hyperlipidemia, unspecified; Z82.49 Family history of ischemic heart disease and other diseases of the circulatory system; Z79.899 Other long term (current) drug therapy
CPT/HCPCS: 36415; 70450; 71045; 80048; 80053; 80061; 81001; 82306; 82607; 83036; 83735; 83880; 84443; 84484; 85025; 93005; 99291; G0378

== ENCOUNTER 2024-11-26 12:22 | Emergency (ER) | payer OTHER ==
[~2024-11-26] VITALS: Ht 160 cm; Wt 77.3 kg
[~2024-11-26 12:22] MED LIST: AMLO1TAB23 PO; ERGO1CAP23 PO; LISI-275 PO; ROSU20TA14 PO
--- NOTE | 2024-11-26 13:31 | ED.PDOC ---
History of Present Illness HPI Comments 49-year-old female presents to the ER with a prior medical history of hypertension: Surgical history of and a chief complaint of upper extremity. Patient reports that her left elbow swollen and in pain for two days with no injury. Denies hitting her elbow. Does not do a lot of typing. That feels like her elbow is swollen Patient states the her left jaw and ear feel numb for three days. Patient is speech is normal and steady, equal tire servicer pushes and pulls. Denies chills, fever, N/V/D, SOB, CP. Chief Complaint: Upper Extremity Time Seen by MD: 13:30 Reviewed Notes: Nurses Notes, Medications, Allergies Allergies: Coded Allergies: NO KNOWN ALLERGIES (Unverified , 10/30/24) Home Meds Active Scripts Rosuvastatin Calcium (Crestor) 20 Mg Tab, 20 MG PO DAILY for 30 Days, #30 TAB 0 Refills Prov:SANDRO DALAL RESIDENT 11/01/24 Lisinopril (Lisinopril) 5 Mg Tab, 2.5 MG PO DAILY for 30 Days, #15 TAB Prov:SANDRO DALAL RESIDENT 11/01/24 Ergocalciferol (VITAMIN D 39361 UNIT) 50,000 [place], [address] UNIT PO Q7D for 30 Days, #6 CAP Prov:SANDRO ADLAL RESIDENT 11/01/24 Reported Medications Amlodipine Besylate (Amlodipine Besylate) 10 Mg Tab, 1 TAB PO DAILY, #30 TAB 5 Refills 10/31/24 Information Source: Patient Mode of Arrival: Ambulatory Severity: Moderate Timing: Days Duration: Since onset Prehospital treatment: None Past Medical History PAST MEDICAL HISTORY: HTN Surgical History: HIM CLERK History: No Pertinent HIM CLERK History Family History Family History: Reviewed,noncontributory to illness, Unknown Social History Smoker: Non-Smoker Alcohol: Denies ETOH Use Drugs: Denies Drug Use Lives In: Home Constitutional: denies: chills, diaphoresis, fatigue, fever, malaise, sweats, weakness, others EENTM: reports: others (Swelling on the left jaw, ); denies: blurred vision, double vision, ear bleeding, ear discharge, ear drainage, ear pain, ear ringing, eye pain, eye redness, hearing loss, mouth pain, mouth swelling, nasal discharge, nose bleeding, nose congestion, nose pain, photophobia, tearing, thro at pain, throat swelling, voice changes Respiratory: denies: cough, hemoptysis, orthopnea, SOB at rest, shortness of breath, SOB with excertion, stridor, wheezing, others Cardiovascular: denies: chest pain, dizzy spells, diaphoresis, Dyspnea on exertion, edema, irregular heart beat, left arm pain, lightheadedness, palpitations, PND, syncope, others Gastrointestinal: denies: abdomen distended, abdominal pain, blood streaked bowels, constipated, diarrhea, dysphagia, difficulty swallowing, hematemesis, melena, nausea, poor appetite, poor fluid intake, rectal bleeding, rectal pain, vomiting, others Genitourinary: denies: abnormal vagina bleeding, burning, dyspareunia, dysuria, flank pain, frequency, hematuria, incontinence, pain, , vagina discharge, urgency, others Neurological: denies: dizziness, fainting, headache, left sided numbness, left sided weakness, numbness, paresthesia, pre-existing deficit, right sided numbness, right sided weakness, seizure, speech problems, tingling, tremors, weakness, others Musculoskeletal: reports: joint pain, joint swelling, others (Left elbow pain and swelling, left jaw and ear numbness); denies: back pain, gout, muscle pain, muscle stiffness, neck pain Integumetry: denies: bruises, change in color, change in hair/nails, dryness, laceration, lesions, lumps, rash, wounds, others Allergic/Immunocompromised: denies: Difficulty Healing, Frequent Infections, Hives, Itching, others Hematologic/Lymphatic: denies: anemia, blood clots, easy bleeding, easy bruising, swollen glands, others Endocrine: denies: excessive hunger, excessive sweating, excessive thirst, excessive urination, flushing, intolerance to cold, intolerance to heat, unexplained weight gain, unexplained weight loss, others Psychiatric: denies: anxiety, bipolar disorder, depression, hopeless, panic disorder, schizophrenia, sleepless, suicidal, others All Other Systems: Reviewed and Negative Physical Exam General Appearance: No Apparent Distress, Normal HEENT: PERRL/EOMI, Pharynx Normal, TMs Normal, Other (Swelling over the left cheek as well as the left jaw. No erythema tender to touch) Neck: Full Range of Motion, Lymphadenopathy (L), Non-Tender, Normal, Normal Inspection Respiratory: Chest Non-Tender, Lungs Clear, No Accessory Muscle Use, No Respiratory Distress, Normal Breath Sounds Cardiovascular: No Edema, No JVD, No Murmur, No Gallop, Normal Peripheral Pulses, Regular Rate/Rhythm Breast Exam: Deferred Gastrointestinal: No Organomegaly, Non Tender, No Pulsatile Mass, Normal Bowel Sounds, Soft Genitalia: Deferred Pelvic: Deferred Rectal: Deferred Extremities: Inflammation, No calf tenderness, Normal capillary refill, Normal inspection, Normal range of motion, No pedal edema, Swelling (Left elbow), T pipo Musculoskeletal : Apperance: Normal Neurologic: Alert, ornamental metal erector II-XII nml as Tested, No Motor Deficits, Normal Affect, Normal Mood, No Sensory Deficits Cerebellar Function: Normal Reflexes: Normal Skin: Dry, Normal Color, Warm Lymphatic: No Adenopathy Was a procedure done? Was a procedure done?: No Differential Dx Considerations may include: Sepsis versus otitis media, versus elbow fracture X-Ray, Labs, Meds, VS Vital Signs Date Time Temp Pulse Resp B/P (MAP) Pulse Ox O2 Delivery O2 Flow Rate FiO2 11/26/24 12:25 97.2 98 16 141/92 98 97.2 X-Ray, Labs, Meds, VS Comment Patient seen and examined by me. Patient does have appears to be an infection on the left side of her face. With some swelling in the lymph nodes on put her on antibiotics for that. Patient was told if the swelling does not improve she will need to come back for IV antibiotics. The left elbow also she has pain with palpation of the ligaments no bone pain. Consistent with a tendinitis. No x- rays are indicated. Patient will be given a Toradol shot here and sent home with anti-inflammatories. He has also been instructed to stretch and ice as much as possible. Time of 1ST Reevaluation: 14:00 Reevaluation 1ST: Unchanged Time of 2ND Reevaluation: 14:17 Reevaluation 2ND: Unchanged Patient Education/Counseling: Diagnosis, Treatment, Prognosis Family Education/Counseling: No Family Present SEPSIS Sepsis Screen Date sepsis recognized/suspect: Nov 26, 2024 Time Sepsis recognized/suspect: 5 Recent Procedure: No On Antibiotic Therapy: No Respiratory Rate >20: No Heart Rate >90: Yes Temp<36 C (96.8 F) or >38.3 C: No SBP <90 or MAP <65 mmHG: No New Acute Mental Status Change: No Is the patient on CPAP, BIPAP,: No Vital Signs Date Time Temp Pulse Resp B/P (MAP) Pulse Ox O2 Delivery O2 Flow Rate FiO2 11/26/24 12:25 97.2 98 16 141/92 98 97.2 Departure 1 Departure Time of Disposition: 14:17 Impression: Primary Impression: Left elbow tendonitis Additional Impression: Cellulitis of face Disposition: 01 HOME / SELF CARE / HOMELESS Condition: Good Additional Instructions: Start the antibiotics today and finish all of them even though you start to feel better Use ice to your face as well as her elbow Trying to stretch her elbow as much as possible Take the anti-inflammatories with food for your face and elbow e-Prescriptions Sulfamethoxazole W/Trimethopri (Bactrim Ds Tablet) 1 Tab Tb 1 TAB PO BID for 7 Days, #14 TAB Prov: ISI SCHMIDT SUPERVISOR COMPOSING ROOM 11/26/24 Ibuprofen Micronized (Ibuprofen) 600 Mg Tab 600 MG PO Q6HPRN PRN for 5 Days, #20 TAB Prov: ISI SCHMDIT SUPERVISOR COMPOSING ROOM 11/26/24 Discharged With: Self Critical Care Note Critical Care Time?: No Stability Stability form required: No I personally scribed for ER ([email or web address]) on 11/26/24 at 13:31. Electronically submitted by Bang Young ([email or web address]). ER Nov 26, 2024 13:31 ISI SCHMIDT SUPERVISOR COMPOSING ROOM Nov 26, 2024 14:20
[2024-11-26] MEDS ORDERED: BACDST PO (14:20)
[2024-11-26] MEDS ORDERED: IBUP1TAB5 PO (14:20)
[2024-11-26] MEDS: KETOROLAC TROMETH 60MG/2ML VIAL IM ONE (14:37)
[2024-11-26 14:43] VITALS: BP 132/88; PULSE 97; RESP 16; TEMP 98.1; O2SAT 98
== END 2024-11-26 15:19 | disposition home or self-care (01) ==
LOC: ER 12:22
DX: L03.211 Cellulitis of face (principal); M77.8 Other enthesopathies, not elsewhere classified; M25.522 Pain in left elbow; I10 Essential (primary) hypertension; Z79.899 Other long term (current) drug therapy; Z98.890 Other specified postprocedural states
CPT/HCPCS: 96372; 99283; J1885

== ENCOUNTER 2024-12-02 08:46 | Emergency (ER) | payer OTHER ==
[~2024-12-02] VITALS: Ht 160 cm; Wt 79.1 kg
[~2024-12-02 08:46] MED LIST changes: +BACDST PO; +IBUP1TAB5 PO
--- NOTE | 2024-12-02 08:53 | ECG ---
[facility] Test Date: 2024-12-02 Test Time: 08:52:09 Pat Name: LE OLIVER Department: ED Room: Gender: F Teacher Emotionally Impaired: STEFANI : 1975 Requested By: LUZMA MCKEON Order Number: [id number] Reading MD: Oscar Bowers Measurements Intervals [place] Rate: 94 P: 52 IA: 176 QRS: -32 QRSD: 96 T: 26 QT: 349 QTc: 437 Interpretive Statements Sinus rhythm Probable left atrial enlargement Left axis deviation Anteroseptal infarct, age indeterminate Electronically Signed On 12-02-2024 16:45:47 PDT by Oscar Bowers Please click the below link to view image of tracing.
[2024-12-02 09:11] LABS: Hematocrit 41.6 % (36.0-46.0); Hemoglobin 14.2 g/dL (12.2-16.2); Mean Corpuscular Hemoglobin 30.7 pg (28.0-32.0); Mean Corpuscular Volume 89.6 fL (80.0-100.0); Nucleated Red Blood Cells % 0.0 %
[2024-12-02 09:21] LABS: Potassium 4.1 mmol/L (3.5-5.1); Sodium 142 mmol/L (136-145)
[2024-12-02 09:22] LABS: Anion Gap 9 (5-15); Calcium 9.9 mg/dL (8.7-10.4); Carbon Dioxide 25 mmol/L (20-31)
[2024-12-02 09:23] LABS: Chloride 108 mmol/L (98-107)
[2024-12-02 09:27] LABS: BUN/Creatinine Ratio 14.1 (10.0-20.0); Blood Urea Nitrogen 10 mg/dL (9-23); Glucose 103 mg/dL (74-106)
--- NOTE | 2024-12-02 09:29 | ED.PDOC ---
HPI Comments 49 y.o female with PMHx of HTN and asthma, presents to the ED for a chief complaint of palpitations that woke her up from her sleep today around 0100. Patient reports symptom is no associated with chest pain, nausea, vomiting, fever or chills but does mentions some SOB. Patient had same episode one year ago but was never evaluated by PCP or telephone claims representative then as palpations self resolved same day. She denies any tobacco, alcohol or substance use. Chief Complaint: Palpitations Time Seen by MD: 08:55 Reviewed Notes: Nurses Notes, Medications, Allergies Allergies: Coded Allergies: NO KNOWN ALLERGIES (Unverified , 10/30/24) Home Meds Active Scripts Sulfamethoxazole W/Trimethopri (Bactrim Ds Tablet) 1 Tab Tb, 1 TAB PO BID for 7 Days, #14 TAB Prov:ISI SCHMIDT TIPPLE REPAIRER 11/26/24 Ibuprofen Micronized (Ibuprofen) 600 Mg Tab, 600 MG PO Q6HPRN PRN for 5 Days, #20 TAB Prov:ISI SCHMIDT TIPPLE REPAIRER 11/26/24 Rosuvastatin Calcium (Crestor) 20 Mg Tab, 20 MG PO DAILY for 30 Days, #30 TAB 0 Refills Prov:MULUGETASANDRO RESIDENT 11/01/24 Lisinopril (Lisinopril) 5 Mg Tab, 2.5 MG PO DAILY for 30 Days, #15 [facility]/01[facility]24 Ergocalciferol (VITAMIN D 25291 UNIT) 50,000 [place], [address] UNIT PO Q7D for 30 Days, #6 CAP [facility] 11/01/24 Reported Medications Amlodipine Besylate (Amlodipine Besylate) 10 Mg Tab, 1 TAB PO DAILY, #30 TAB 5 Refills 10/31/24 Information Source: Patient Mode of Arrival: Ambulatory Severity: Moderate Timing: Hours Duration: Since onset Onset: At Rest Cardiac Risk Factors: None PE Risk Factors: None Modifying Factors: Nothing Associated Signs and Symptoms: Palpitations Past Medical History PAST MEDICAL HISTORY: HTN Surgical History: IRONER HAND History: No Pertinent IRONER HAND History Family History Family History: Reviewed,noncontributory to illness, Unknown Social History Smoker: Non-Smoker Alcohol: Denies ETOH Use Drugs: Denies Drug Use Lives In: Home Constitutional: denies: chills, diaphoresis, fatigue, fever, malaise, sweats, weakness, others EENTM: denies: blurred vision, double vision, ear bleeding, ear discharge, ear drainage, ear pain, ear ringing, eye pain, eye redness, hearing loss, mouth pain, mouth swelling, nasal discharge, nose bleeding, nose congestion, nose pain, photophobia, tearing, throat pain, throat swelling, voice changes, others Respiratory: denies: cough, hemoptysis, orthopnea, SOB at rest, shortness of breath, SOB with excertion, stridor, wheezing, others Cardiovascular: reports: palpitations; denies: chest pain, dizzy spells, diaphoresis, Dyspnea on exertion, edema, irregular heart beat, left arm pain, lightheadedness, PND, syncope, others Gastrointestinal: denies: abdomen distended, abdominal pain, blood streaked bowels, constipated, diarrhea, dysphagia, difficulty swallowing, hematemesis, melena, nausea, poor appetite, poor fluid intake, rectal bleeding, rectal pain, vomiting, others Genitourinary: denies: abnormal vagina bleeding, burning, dyspareunia, dysuria, flank pain, frequency, hematuria, incontinence, pain, , vagina discharge, urgency, others Neurological: denies: dizziness, fainting, headache, left sided numbness, left sided weakness, numbness, paresthesia, pre-existing deficit, right sided numbness, right sided weakness, seizure, speech problems, tingling, tremors, weakness, others Musculoskeletal: denies: back pain, gout, joint pain, joint swelling, muscle pain, muscle stiffness, neck pain, others Integumetry: denies: bruises, change in color, change in hair/nails, dryness, laceration, lesions, lumps, rash, wounds, others Allergic/Immunocompromised: denies: Difficulty Healing, Frequent Infections, Hives, Itching, others Hematologic/Lymphatic: denies: anemia, blood clots, easy bleeding, easy bruising, swollen glands, others Endocrine: denies: excessive hunger, excessive sweating, excessive thirst, excessive urination, flushing, intolerance to cold, intolerance to heat, une xplained weight gain, unexplained weight loss, others Psychiatric: denies: anxiety, bipolar disorder, depression, hopeless, panic disorder, schizophrenia, sleepless, suicidal, others All Other Systems: Reviewed and Negative Physical Exam General Appearance: Moderate Distress HEENT: Normal ENT Inspection, Pharynx Normal, TMs Normal Neck: Full Range of Motion, Non-Tender, Normal, Normal Inspection Respiratory: Chest Non-Tender, Lungs Clear, No Accessory Muscle Use, No Respiratory Distress, Normal Breath Sounds Cardiovascular: No Edema, No JVD, No Murmur, No Gallop, Normal Peripheral Pulses, Regular Rate/Rhythm Breast Exam: Deferred Gastrointestinal: No Organomegaly, Non Tender, No Pulsatile Mass, Normal Bowel Sounds, Soft Genitalia: Deferred Pelvic: Deferred Rectal: Deferred Extremities: No calf tenderness, Normal capillary refill, Normal inspection, Normal range of motion, Non-tender, No pedal edema Musculoskeletal : Apperance: Normal Neurologic: Alert, self pay representative II-XII nml as Tested, No Motor Deficits, Normal Affect, Normal Mood, No Sensory Deficits Cerebellar Function: Normal Reflexes: Normal Skin: Dry, Normal Color, Warm Peripheral Pulses: 3+ Radial (R), 3+ Radial (L) Lymphatic: No Adenopathy EKG EKG : Pulse Rate (adult): 94 Cardiac Rhythm: NSR Was a procedure done? Was a procedure done?: No CP Differential Dx Differential Diagnosis: A-fib, A-Flutter, Angina, Anxiety / Panic Attack, Atrial Dysrhythmia, Electrolyte Disorder X-Ray, Labs, Meds, VS Vital Signs Date Time Temp Pulse Resp B/P (MAP) Pulse Ox O2 Delivery O2 Flow Rate FiO2 12/02/24 09:29 94 12/02/24 08:52 94 12/02/24 08:47 98.1 107 18 150/102 93 98.1 Lab Test 12/02/24 09:53 12/02/24 08:58 Range/Units Troponin I High Sensitivity Pending < 3 L </=34 ng/L White Blood Count 5.0 4.4-10.8 10^3/uL Red Blood Count 4.64 4.0-5.20 10^6/uL Hemoglobin 14.2 12.2-16.2 g/dL Hematocrit 41.6 36.0-46.0 % Mean Corpuscular Volume 89.6 80.0-100.0 fL Mean Corpuscular Hemoglobin 30.7 28.0-32.0 pg Mean Corpuscular Hemoglobin Concent 34.2 32.0-36.0 g/dL Red Cell Distribution Width 14.2 11.8-14.3 % Platelet Count 348 140-450 10^3/uL Mean Platelet Volume 7.4 6.9-10.8 fL Neutrophils (%) (Auto) 60.5 37.0-80.0 % Lymphocytes (%) (Auto) 22.3 10.0-50.0 % Monocytes (%) (Auto) 6.8 0.0-12.0 % Eosinophils (%) (Auto) 9.9 H 0.0-7.0 % Basophils (%) (Auto) 0.5 0.0-2.0 % Neutrophils # (Auto) 3.0 1.6-8.6 10 ^3/uL Lymphocytes # (Auto) 1.1 0.4-5.4 10 ^3/uL Monocytes # (Auto) 0.3 0-1.3 10 ^3/uL Eosinophils # (Auto) 0.5 0-0.8 10 ^3/uL Basophils # (Auto) 0 0-0.2 10 ^3/uL Nucleated Red Blood Cells 0.0 % Sodium Level 142 136-145 mmol/L Potassium Level 4.1 3.5-5.1 mmol/L Chloride Level 108 H 98-107 mmol/L Carbon Dioxide Level 25 20-31 mmol/L Anion Gap 9 5-15 Blood Urea Nitrogen 10 9-23 mg/dL Creatinine 0.71 0.550-1.02 mg/dL Glomerular Filtration Rate Calc 105 >90 mL/min BUN/Creatinine Ratio 14.1 10.0-20.0 Serum Glucose 103 74-106 mg/dL Calcium Level 9.9 8.7-10.4 mg/dL Patient alert. Complaining of palpitations. Vitals stable. Answering questions EKG reviewed does not show any acute changes. Cardiac marker within normal limits. Blood pressure elevated. Was given clonidine. Explained to the patient. Was told to follow up with her primary care physician. Was told to come back if there is any problem. Time of 1ST Reevaluation: 09:30 Reevaluation 1ST: Improved Patient Education/Counseling: Diagnosis, Treatment, Prognosis Family Education/Counseling: No Family Present SEPSIS Sepsis Screen Date sepsis recognized/suspect: Dec 02, 2024 Time Sepsis recognized/suspect: 0850 Recent Procedure: No On Antibiotic Therapy: No Respiratory Rate >20: No Heart Rate >90: No Temp<36 C (96.8 F) or >38.3 C: No SBP <90 or MAP <65 mmHG: No New Acute Mental Status Change: No Is the patient on CPAP, BIPAP,: No Physician Orders Troponin-I Hs (12/02/24 09:51) Troponin-I Hs (12/02/24 11:51) Urinalysis (12/02/24 08:54) Vital Signs Date Time Temp Pulse Resp B/P (MAP) Pulse Ox O2 Delivery O2 Flow Rate FiO2 12/02/24 09:29 94 12/02/24 08:52 94 12/02/24 08:47 98.1 107 18 150/102 93 98.1 Laboratory Tests Test 12/02/24 08:58 White Blood Count 5.0 10^3/uL (4.4-10.8) Departure 1 Departure Time of Disposition: 10:20 Impression: Primary Impression: Hypertensive urgency Disposition: 01 HOME / SELF CARE / HOMELESS Condition: Good Discharged With: Self Critical Care Note Critical Care Time?: No Stability Stability form required: No Heart Score Heart Score: Heart Score Response (Comments) Value History Slightly Suspicious 0 EKG Normal 0 Age 45-64 1 Risk Factors 1 or 2 risk factors 1 Troponin Normal limit 0 Total 2 I personally scribed for LUZMA MCKEON MD ([email or web address]) on 12/02/24 at 09:29. Electronically submitted by Liss Lau ([facility]). LUZMA MCKEON MD Dec 02, 2024 09:29
[2024-12-02 10:59] VITALS: BP 148/92; TEMP 97.2
[2024-12-02 11:03] VITALS: PULSE 84; RESP 17; O2SAT 99
== END 2024-12-02 11:05 | disposition home or self-care (01) ==
LOC: ER 08:46
DX: I16.0 Hypertensive urgency (principal); Z79.899 Other long term (current) drug therapy
CPT/HCPCS: 36415; 80048; 84484; 85025; 93005

== ENCOUNTER 2025-01-18 15:23 | Inpatient (IN) | payer OTHER ==
[~2025-01-18] VITALS: Ht 160 cm; Wt 79.3 kg
--- NOTE | 2025-01-18 15:41 | ED.PDOC ---
HPI Comments This is a 49 year old female presenting to the ED with chief complaint of chest pain. Patient reports that she has been experiencing substernal dull chest pain since 12pm today while laying down at home. Patient relays that her pain is currently a 3/10. Patient denies any SOB, dizziness, nausea, vomiting, abdominal pain, or headache. Chief Complaint: Chest Pain Time Seen by MD: 15:39 Reviewed Notes: Nurses Notes, Medications, Allergies Allergies: Coded Allergies: NO KNOWN ALLERGIES (Unverified , 10/30/24) Home Meds Active Scripts Sulfamethoxazole W/Trimethopri (Bactrim Ds Tablet) 1 Tab Tb, 1 TAB PO BID for 7 Days, #14 TAB Prov:ISI SCHMIDT GROCERY CASHIER 11/26/24 Ibuprofen Micronized (Ibuprofen) 600 Mg Tab, 600 MG PO Q6HPRN PRN for 5 Days, #20 TAB Prov:ISI SCHMIDT GROCERY CASHIER 11/26/24 Rosuvastatin Calcium (Crestor) 20 Mg Tab, 20 MG PO DAILY for 30 Days, #30 TAB 0 Refills Prov:SANDRO DALAL RESIDENT 11/01/24 Lisinopril (Lisinopril) 5 Mg Tab, 2.5 MG PO DAILY for 30 Days, #15 [facility]/01[facility]24 Ergocalciferol (VITAMIN D 97696 UNIT) 50,000 [place], [address] UNIT PO Q7D for 30 Days, #6 CAP Prov[facility] 11/01/24 Reported Medications Amlodipine Besylate (Amlodipine Besylate) 10 Mg Tab, 1 TAB PO DAILY, #30 TAB 5 Refills 10/31/24 Information Source: Patient Mode of Arrival: Ambulatory Severity: Moderate Timing: Hours Duration: Since onset Prehospital treatment: None Location: Substernal Radiation: No Radiation Quality: Other (Dull) Onset: At Rest Cardiac Risk Factors: Hyperlipidemia, HTN PE Risk Factors: None History of: None Associated Signs and Symptoms: None Past Medical History PAST MEDICAL HISTORY: High Lipids, HTN Surgical History: CLINICAL APPLICATION SPECIALIST History: No Pertinent CLINICAL APPLICATION SPECIALIST History Family History Family History: Reviewed,noncontributory to illness, Family hx of heart [place] Social History Smoker: Non-Smoker Alcohol: Occasionally Drugs: Denies Drug Use Lives In: Home Constitutional: denies: chills, diaphoresis, fatigue, fever, malaise, sweats, weakness, others EENTM: denies: blurred vision, double vision, ear bleeding, ear discharge, ear drainage, ear pain, ear ringing, eye pain, eye redness, hearing loss, mouth pain, mouth swelling, nasal discharge, nose bleeding, nose congestion, nose pain, photophobia, tearing, throat pain, throat swelling, voice changes, others Respiratory: denies: cough, hemoptysis, orthopnea, SOB at rest, shortness of breath, SOB with excertion, stridor, wheezing, others Cardiovascular: reports: chest pain; denies: dizzy spells, diaphoresis, Dyspnea on exertion, edema, irregular heart beat, left arm pain, lightheadedness, palpitations, PND, syncope, others Gastrointestinal: denies: abdomen distended, abdominal pain, blood streaked bowels, constipated, diarrhea, dysphagia, difficulty swallowing, hematemesis, melena, nausea, poor appetite, poor fluid intake, rectal bleeding, rectal pain, vomiting, others Genitourinary: denies: abnormal vagina bleeding, burning, dyspareunia, dysuria, flank pain, frequency, hematuria, incontinence, pain, , vagina discharge, urgency, others Neurological: denies: dizziness, fainting, headache, left sided numbness, left sided weakness, numbness, paresthesia, pre-existing deficit, right sided numbness, right sided weakness, seizure, speech problems, tingling, tremors, weakness, others Musculoskeletal: denies: back pain, gout, joint pain, joint swelling, muscle pain, muscle stiffness, neck pain, others Integumetry: denies: bruises, change in color, change in hair/nails, dryness, laceration, lesions, lumps, rash, wounds, others Allergic/Immunocompromised: denies: Difficulty Healing, Frequent Infections, Hives, Itching, others Hematologic/Lymphatic: denies: anemia, blood clots, easy bleeding, easy bruising, swollen glands, others Endocrine: denies: excessive hunger, excessive sweating, excessive thirst, excessive urination, flushing, intolerance to cold, intolerance to heat, unexplained weight gain, unexplained weight loss, others Psychiatric: denies: anxiety, bipolar disorder, depression, hopeless, panic disorder, schizophrenia, sleepless, suicidal, others All Other Systems: Reviewed and Negative Physical Exam General Appearance: Mild Distress HEENT: Normal ENT Inspection, Pharynx Normal, TMs Normal Neck: Full Range of Motion, Non-Tender, Normal, Normal Inspection Respiratory: Chest Non-Tender, Lungs Clear, No Accessory Muscle Use, No Respiratory Distress, Normal Breath Sounds Cardiovascular: No Edema, No JVD, No Murmur, No Gallop, Tachycardia Breast Exam: Deferred Gastrointestinal: No Organomegaly, Non Tender, No Pulsatile Mass, Normal Bowel Sounds, Soft Genitalia: Deferred Pelvic: Deferred Rectal: Deferred Extremities: No calf tenderness, Normal capillary refill, Normal inspection, Normal range of motion, Non-tender, No pedal edema Musculoskeletal : Apperance: Normal Neurologic: Alert, director recreation II-XII nml as Tested, No Motor Deficits, Normal Affect, Normal Mood, No Sensory Deficits Cerebellar Function: Normal Reflexes: Normal Skin: Dry, Normal Color, Warm Lymphatic: No Adenopathy EKG EKG #1: Pulse Rate (adult): 104 [place]: Normal Cardiac Rhythm: ST Block: None Hypertrophy: LAE ST: Normal EKG #2: Pulse Rate (adult): 86 [place]: Normal Cardiac Rhythm: NSR Block: None Hypertrophy: None ST: Normal Was a procedure done? Was a procedure done?: No CP Differential Dx Differential Diagnosis: Angina, PR, Pulmonary Embolus Differential Diagnosis: CHF Differential Diagnosis: Pericarditis X-Ray, Labs, Meds, VS Vital Signs Date Time Temp Pulse Resp B/P (MAP) Pulse Ox O2 Delivery O2 Flow Rate FiO2 01/18/25 16:27 86 01/18/25 16:12 90 01/18/25 16:12 98.1 90 16 172/98 (122) 97 98.1 01/18/25 15:41 104 01/18/25 15:28 104 01/18/25 15:24 97.0 110 18 179/108 100 97.0 Lab Test 01/18/25 16:40 01/18/25 15:49 Range/Units Troponin I High Sensitivity < 3 L < 3 L </=34 ng/L White Blood Count 3.2 L 4.4-10.8 10^3/uL Red Blood Count 3.85 L 4.0-5.20 10^6/uL Hemoglobin 10.2 L 12.2-16.2 g/dL Hematocrit 32.4 L 36.0-46.0 % Mean Corpuscular Volume 84.1 80.0-100.0 fL Mean Corpuscular Hemoglobin 26.5 L 28.0-32.0 pg Mean Corpuscular Hemoglobin Concent 31.6 L 32.0-36.0 g/dL Red Cell Distribution Width 18.7 H 11.8-14.3 % Platelet Count 266 140-450 10^3/uL Mean Platelet Volume 7.0 6.9-10.8 fL Neutrophils (%) (Auto) 70.9 37.0-80.0 % Lymphocytes (%) (Auto) 18.7 10.0-50.0 % Monocytes (%) (Auto) 5.9 0.0-12.0 % Eosinophils (%) (Auto) 3.3 0.0-7.0 % Basophils (%) (Auto) 1.2 0.0-2.0 % Neutrophils # (Auto) 2.2 1.6-8.6 10 ^3/uL Lymphocytes # (Auto) 0.6 0.4-5.4 10 ^3/uL Monocytes # (Auto) 0.2 0-1.3 10 ^3/uL Eosinophils # (Auto) 0.1 0-0.8 10 ^3/uL Basophils # (Auto) 0 0-0.2 10 ^3/uL Nucleated Red Blood Cells 0.2 % D-Dimer, Quantitative 0.22 0.0-0.49 mg/L FEU Sodium Level 141 136-145 mmol/L Potassium Level 3.2 L 3.5-5.1 mmol/L Chloride Level 102 98-107 mmol/L Carbon Dioxide Level 26 20-31 mmol/L Anion Gap 13 5-15 Blood Urea Nitrogen 7 L 9-23 mg/dL Creatinine 0.72 0.550-1.02 mg/dL Glomerular Filtration Rate Calc 103 >90 mL/min BUN/Creatinine Ratio 9.7 L 10.0-20.0 Serum Glucose 109 H 74-106 mg/dL Calcium Level 9.3 8.7-10.4 mg/dL Current Medications Medications (Trade) Dose Ordered Sig/Samara Route Start Time Stop Time Status Last Admin Aspirin 162 mg ONCE ONCE PO 01/18/25 15:45 01/18/25 15:46 DC 01/18/25 16:11 The patient was given aspirin 162 mg by mouth The patient's CBC shows anemia with a hemoglobin of 10.2 and a hematocrit of 32 The chemistry panel shows some hypokalemia at 3.2 The patient is being given potassium here in the emergency department's The patient is being admitted at this time. The chest x-ray is negative Images Reviewed?: Images reviewed and evaluated by me Time of 1ST Reevaluation: 18:35 Reevaluation 1ST: Unchanged Patient Education/Counseling: Diagnosis, Treatment, Prognosis Family Education/Counseling: No Family Present SEPSIS Sepsis Screen Date sepsis recognized/suspect: Jan 18, 2025 Time Sepsis recognized/suspect: 1524 Recent Procedure: No On Antibiotic Therapy: No Respiratory Rate >20: No Heart Rate >90: Yes Temp<36 C (96.8 F) or >38.3 C: No SBP <90 or MAP <65 mmHG: No New Acute Mental Status Change: No Is the patient on CPAP, BIPAP,: No Physician Orders Electrocardigram (01/18/25 18:32) Heplock Iv (01/18/25 15:38) Hospice Volunteer Coordinator (01/18/25 15:38) Blood Pressure (01/18/25 15:38) Pulse Oximetry (01/18/25 15:38) Chest Two Views Routine (01/18/25 15:38) Vital Signs Date Time Temp Pulse Resp B/P (MAP) Pulse Ox O2 Delivery O2 Flow Rate FiO2 01/18/25 16:27 86 01/18/25 16:12 90 01/18/25 16:12 98.1 90 16 172/98 (122) 97 98.1 01/18/25 15:41 104 01/18/25 15:28 104 01/18/25 15:24 97.0 110 18 179/108 100 97.0 Laboratory Tests Test 01/18/25 15:49 White Blood Count 3.2 10^3/uL (4.4-10.8) L Medications Medications Dose Ordered Sig/Samara Route Start Time Stop Time Status Last Admin Dose Admin Aspirin 162 mg ONCE ONCE PO 01/18/25 15:45 01/18/25 15:46 DC 01/18/25 16:11 Departure 1 Departure Time of Disposition: 18:35 Impression: Primary Impression: Acute myocardial ischemia Disposition: 09 ADMITTED INPATIENT Admit to: Tele Condition: Fair Critical Care Note Critical Care Time?: Yes (35 min-critical care time only) Stability Stability form required: Yes Unstable for transfer: Telemetry monitoring (Telemetry monitoring required), ED Physician Assesment (Clinical assesment) Heart Score Heart Score: Heart Score Response (Comments) Value History Moderate Suspicious 1 EKG Normal 0 Age 45-64 1 Risk Factors 1 or 2 risk factors 1 Troponin Normal limit 0 Total 3 I personally scribed for JARVIS LR MD ([email or web address]) on 01/18/25 at 15:41. Electronically submitted by Edi Whitlock ([email or web address]). I personally scribed for JARVIS LR MD ([email or web address]) on 01/18/25 at 17:02. Electronically submitted by Edi Whitlock ([email or web address]). JARVIS LR MD Jan 18, 2025 15:41
[2025-01-18 15:58] LABS: Hematocrit 32.4 % (36.0-46.0); Hemoglobin 10.2 g/dL (12.2-16.2); Mean Corpuscular Hemoglobin 26.5 pg (28.0-32.0); Mean Corpuscular Volume 84.1 fL (80.0-100.0); Nucleated Red Blood Cells % 0.2 %
[2025-01-18 16:06] LABS: Chloride 102 mmol/L (98-107); Sodium 141 mmol/L (136-145)
[2025-01-18 16:07] LABS: Anion Gap 13 (5-15); Carbon Dioxide 26 mmol/L (20-31)
[2025-01-18 16:08] LABS: Calcium 9.3 mg/dL (8.7-10.4)
--- NOTE | 2025-01-18 16:10 | DVH ---
XY CHEST TWO VIEWS ROUTINE CLINICAL HISTORY: cp COMPARISON: None TECHNIQUE: Frontal and lateral view of the chest was obtained FINDINGS: Lines and Tubes: None Lungs: No focal consolidation. Pleura: No effusion. No pneumothorax. Cardiomediastinal contours: Unremarkable Bones: No acute osseous abnormality. IMPRESSION: 1. No acute cardiopulmonary disease.
[2025-01-18 16:12] LABS: BUN/Creatinine Ratio 9.7 (10.0-20.0)
[2025-01-18 16:14] LABS: Blood Urea Nitrogen 7 mg/dL (9-23); Glucose 109 mg/dL (74-106); Potassium 3.2 mmol/L (3.5-5.1)
--- NOTE | 2025-01-18 18:25 | ECG ---
[facility] Test Date: 2025-01-18 Test Time: 16:24:42 Pat Name: LE OLIVER Department: ED Room: 0284T Gender: F Wood Room Hand: JULI : 1975 Requested By: JARVIS LR Order Number: [id number] Reading MD: Oscar Bowers Measurements Intervals [place] Rate: 86 P: 23 SC: 181 QRS: -14 QRSD: 105 T: 23 QT: 376 QTc: 450 Interpretive Statements Sinus rhythm Anteroseptal infarct, age indeterminate Electronically Signed On 01-20-2025 18:45:14 PDT by Oscar Bowers Please click the below link to view image of tracing.
--- NOTE | 2025-01-18 18:26 | ECG ---
[facility] Test Date: 2025-01-18 Test Time: 18:21:53 Pat Name: LE OLIVER Department: ED Room: 0284T Gender: F Diecast Machine Operator: JULI : 1975 Requested By: JARVIS LR Order Number: [id number] Reading MD: Oscar Bowers Measurements Intervals [place] Rate: 77 P: 50 HI: 180 QRS: -17 QRSD: 104 T: 25 QT: 383 QTc: 434 Interpretive Statements Sinus rhythm Probable left atrial enlargement Borderline left axis deviation Anteroseptal infarct, age indeterminate Electronically Signed On 01-20-2025 18:45:36 PDT by Oscar Bowers Please click the below link to view image of tracing.
--- NOTE | 2025-01-18 21:08 | DVHHPRES ---
History of Present Illness Resident Creating Document: BARB BAUTISTA RESIDENT History of Present Illness This is a 49-year-old female with past medical history of hypertension, hyperlipidemia, asthma, presented to the ER with chief complain of chest pain. Patient complains that substernal chest pain started around noon, described as constant, sharp, 6/10, nonradiating, associated with palpitations. She denies shortness of breaths, dizziness, headache. She complains of acid reflux since the last 2 days. Patient is currently on her menstrual cycle and complains of discomfort in her lower abdomen. She reports being compliant on her home medications. Previous hospitalization: December 2024 for hypertensive crisis PMHx: Hypertension, hyperlipidemia, asthma PSHx: section Social history: Occasional alcohol use. Denies smoking, drug use. Lives in house with family, full code, next to kin is post. Home medication: Rosuvastatin, lisinopril, amlodipine Allergic history: No known allergies Patient was examined at bedside today. Vitals show tachycardia, hypertensive crisis on arrival. Labs show leukopenia, microcytic, hypochromic anemia, hypokalemia. Patient is admitted for further evaluation and management. Review of Systems Review of Systems ROS: Constitutional: Denies weight loss, fever and chills. HEENT: Denies changes in vision and hearing. Respiratory: Denies shortness of breath and cough Cardiovascular: Chest pain, palpitations GI: Abdominal discomfort; denies nausea, vomiting and diarrhea. : Denies dysuria and urinary frequency. Musculoskeletal: Denies myalgias and joint pain Skin: Denies rash and pruritus. Neurological: Denies dizziness, headache, vision or hearing problems Allergies: Coded Allergies: NO KNOWN ALLERGIES (Unverified , 10/30/24) Exam Vital Signs Vital Signs Date Time Temp Pulse Resp B/P (MAP) Pulse Ox O2 Delivery O2 Flow Rate FiO2 01/18/25 20:22 97.9 88 14 187/107 (133) 98 97.9 Exam General: Patient alert and oriented in person, place and time. Patient following commands. HEENT: Normocephalic, atraumatic, moist mucous membranes Respiratory/pulmonary: Clear lungs bilaterally, vesicular murmurs present in almost all lung [place], no associated crackles or wheezes. Cardiovascular: Tachycardia. Normal heart sounds S1 and S2 with no associated murmurs Abdomen: Abdomen nondistended, there is no pain to palpation in any of the abdominal quadrants, no palpable masses. Extremities: There is no peripheral edema present at the lower extremities. Peripheral Pulses: 3+ Radial (R). 3+ Radial (L). 3+ Dorsalis pedis (R). 3+ Dorsalis pedis(L) Skin: No rashes or pruritus, there is no sacral edema present at this time. Neurological: Intact cranial nerves with no focal neurologic deficits Labs/Xrays Labs Test 01/18/25 16:40 01/18/25 15:49 Range/Units Troponin I High Sensitivity < 3 L </=34 ng/L White Blood Count 3.2 L 4.4-10.8 10^3/uL Red Blood Count 3.85 L 4.0-5.20 10^6/uL Hemoglobin 10.2 L 12.2-16.2 g/dL Hematocrit 32.4 L 36.0-46.0 % Mean Corpuscular Volume 84.1 80.0-100.0 fL Mean Corpuscular Hemoglobin 26.5 L 28.0-32.0 pg Mean Corpuscular Hemoglobin Concent 31.6 L 32.0-36.0 g/dL Red Cell Distribution Width 18.7 H 11.8-14.3 % Platelet Count 266 140-450 10^3/uL Mean Platelet Volume 7.0 6.9-10.8 fL Neutrophils (%) (Auto) 70.9 37.0-80.0 % Lymphocytes (%) (Auto) 18.7 10.0-50.0 % Monocytes (%) (Auto) 5.9 0.0-12.0 % Eosinophils (%) (Auto) 3.3 0.0-7.0 % Basophils (%) (Auto) 1.2 0.0-2.0 % Neutrophils # (Auto) 2.2 1.6-8.6 10 ^3/uL Lymphocytes # (Auto) 0.6 0.4-5.4 10 ^3/uL Monocytes # (Auto) 0.2 0-1.3 10 ^3/uL Eosinophils # (Auto) 0.1 0-0.8 10 ^3/uL Basophils # (Auto) 0 0-0.2 10 ^3/uL Nucleated Red Blood Cells 0.2 % D-Dimer, Quantitative 0.22 0.0-0.49 mg/L FEU Sodium Level 141 136-145 mmol/L Potassium Level 3.2 L 3.5-5.1 mmol/L Chloride Level 102 98-107 mmol/L Carbon Dioxide Level 26 20-31 mmol/L Anion Gap 13 5-15 Blood Urea Nitrogen 7 L 9-23 mg/dL Creatinine 0.72 0.550-1.02 mg/dL Glomerular Filtration Rate Calc 103 >90 mL/min BUN/Creatinine Ratio 9.7 L 10.0-20.0 Serum Glucose 109 H 74-106 mg/dL Calcium Level 9.3 8.7-10.4 mg/dL SEPSIS Sepsis Screen Date sepsis recognized/suspect: Jan 18, 2025 Time Sepsis recognized/suspect: 1524 Recent Procedure: No On Antibiotic Therapy: No Respiratory Rate >20: No Heart Rate >90: Yes Temp<36 C (96.8 F) or >38.3 C: No SBP <90 or MAP <65 mmHG: No New Acute Mental Status Change: No Is the patient on CPAP, BIPAP,: No Physician Orders Electrocardigram (01/18/25 18:32) Heplock Iv (01/18/25 15:38) Swimming Pool Service Technician (01/18/25 15:38) Blood Pressure (01/18/25 15:38) Pulse Oximetry (01/18/25 15:38) Chest Two Views Routine (01/18/25 15:38) Vital Signs Date Time Temp Pulse Resp B/P (MAP) Pulse Ox O2 Delivery O2 Flow Rate FiO2 01/18/25 20:22 97.9 88 14 187/107 (133) 98 97.9 01/18/25 18:23 77 01/18/25 17:02 86 01/18/25 16:27 86 01/18/25 16:12 90 01/18/25 16:12 98.1 90 16 172/98 (122) 97 98.1 01/18/25 15:41 104 01/18/25 15:28 104 01/18/25 15:24 97.0 110 18 179/108 100 97.0 Laboratory Tests Test 01/18/25 15:49 White Blood Count 3.2 10^3/uL (4.4-10.8) L Medications Medications Dose Ordered Sig/Samara Route Start Time Stop Time Status Last Admin Dose Admin Aspirin 162 mg ONCE ONCE PO 01/18/25 15:45 01/18/25 15:46 DC 01/18/25 16:11 162 MG Assessment/Plan Assessment/Plan Hypertensive crisis Essential hypertension Chest pain, ruled out ACS CXR shows no acute cardiopulmonary disease. EKG shows shows sinus rhythm Troponins WNL Continue amlodipine 10 mg, lisinopril 2.5 in daily Echocardiogram, renal artery ultrasound, aldosterone, renin, cortisol blood test ordered Monitor on telemetry Hypokalemia Supplemented Continue monitoring Hyperlipidemia Transaminitis Hepatic steatosis Hepatic mass, rule out malignancy On rosuvastatin 20 mg daily Ultrasound shows hepatic steatosis, hepatomegaly, solid appearing light right hepatic lobe mass 5.4 X5.1 X4.6 cm Ordered AFP Vitamin-D deficiency Supplemented DIET: Cardiac, renal DVT PROPHYLAXIS: Lovenox GI PROPHYLAXIS: Protonix CODE STATUS: Goals of care discussed with patient at bedside for more than 35 minutes. Full code DISPOSITION: Telemetry Patient's status and plan discussed with the patient. Case discussed with Dr. Neville. Plan discussed with: Patient, Other (Nurses) Date of Service: Jan 18, 2025 Billing Provider: JAMES NEVILLE MD Common Visit Codes: 16760-QSPKEOF INP/OBS CARE (HIGH) Secondary Visit Codes: 50312-BIEYFOQN CARE PLAN 30 MINUTES BARB BAUTISTA RESIDENT Jan 18, 2025 21:08 DENIA LORENZ RESIDENT Jan 19, 2025 05:53
[2025-01-18 21:53] LABS: Alkaline Phosphatase 96.0 U/L (46-116); Cholesterol 153.0 mg/dL (< 200); Magnesium 1.8 mg/dL (1.6-2.6); Total Protein 7.8 g/dL (5.7-8.2); Triglycerides 91.0 mg/dL (< 150)
[2025-01-18 22:05] LABS: Bilirubin, Total 1.2 mg/dL (0.2-1.0)
[2025-01-18 22:06] LABS: Alanine Aminotransferase 76.0 U/L (7-40); Albumin 5.0 g/dL (3.2-4.8); Bilirubin, Direct 0.4 mg/dL (<0.3); HDL Cholesterol 95.0 mg/dL (40-59)
[2025-01-18 22:16] LABS: Lipase 43.0 U/L (12-53)
[2025-01-18] MEDS ORDERED: ONDANSETRON HCL 4 MG/2 ML VIAL IV PRN (22:30)
[2025-01-18] MEDS ORDERED: MORPHINE SULFATE INJ 2 MG/ml SYRG IV PRN (22:30)
[2025-01-18 22:40] LABS: INR 1.07 (0.9-1.15); Partial Thromboplastin Time 24.8 SEC (24.5-34.5); Prothrombin Time 11.3 sec (9.3-11.8)
[2025-01-18] MEDS: POTASSIUM EFFERVESENT TAB 25 MEQ PO ONE (23:48)
[2025-01-18] MEDS: ENOXAPARIN SOD 40 MG/0.4 ML SYRINGE SC SCH (23:49)
[2025-01-19] VITALS (8 sets, daily range): BP systolic 132–157; BP diastolic 83–100; PULSE 81–94; RESP 15–17; TEMP 98.2–99.1; O2SAT 96–100
--- NOTE | 2025-01-19 01:12 | DVH ---
INDICATION: Rule out cholecystitis TECHNIQUE: Multiple real-time sonographic images were obtained of the right upper quadrant. COMPARISON: None FINDINGS: The liver demonstrates diffusely increased echotexture without focal mass lesions. The live r measures 20.0 cm. Normal hepatopetal portal venous flow identified. No evidence of pleural effusio n or abdominal ascites. Heterogeneous solid-appearing right hepatic lobe mass measures 5.4 x 5.1 x 4. 6 cm. There is no intrahepatic or extrahepatic ductal dilatation. The common duct measures 0.5 cm. The gallbladder is without evidence of stone or sludge. The gallbladder wall measures 0.2 cm and is w ithin normal limits. The right kidney measures 10.9 cm. The right kidney is normal in contour, size, and shape. The echoge nicity is normal. There is no hydronephrosis. The pancreas is not well visualized due to overlying bowel gas. IMPRESSION: 1. No sonographic evidence of gallstones or acute cholecystitis. 2. Hepatic steatosis and hepatomegaly. 3. Heterogeneous solid-appearing right hepatic lobe mass measures 5.4 x 5.1 x 4.6 cm. Recommend furth er evaluation with nonemergent CT or MRI using a hepatic mass protocol.
[2025-01-19] MEDS: PANTOPRAZOLE 40 MG/10 ML VIAL INJ IV ONE (02:48)
[2025-01-19] MEDS: ERGOCALCIFEROL 50,000 UNIT(1.25MG) CAP PO SCH (02:48)
[2025-01-19 04:54] LABS: Urine Protein, UAD TRACE (Negative)
[2025-01-19 05:05] LABS: Amphetamine Screen, Urine Neg (NEGATIVE); Barbiturate Scree,Urine Neg (NEGATIVE); Benzodiazephine Screen, Urine Neg (NEGATIVE); Cannabinoid Screen, Urine Neg (NEGATIVE); Cocaine Screen, Urine Neg (NEGATIVE); Opiate Scree,Urine Neg (NEGATIVE); Phencyclidine Screen, Urine Neg (NEGATIVE)
--- NOTE | 2025-01-19 06:35 | ECG ---
[facility] Test Date: 2025-01-18 Test Time: 15:28:49 Pat Name: LE OLIVER Department: ED Room: [facility] Gender: F Manager Child: STEFANI : 1975 Requested By: JARVIS LR Order Number: [id number] Reading MD: Oscar Bowers Measurements Intervals [place] Rate: 104 P: 34 CA: 184 QRS: -6 QRSD: 99 T: 6 QT: 359 QTc: 473 Interpretive Statements Sinus tachycardia Probable left atrial enlargement Anterior infarct, age indeterminate Electronically Signed On 01-20-2025 18:45:04 PDT by Oscar Bowers Please click the below link to view image of tracing.
[2025-01-19 08:26] LABS: Hematocrit 30.9 % (36.0-46.0); Hemoglobin 9.7 g/dL (12.2-16.2); Mean Corpuscular Hemoglobin 26.7 pg (28.0-32.0); Mean Corpuscular Volume 84.7 fL (80.0-100.0); Nucleated Red Blood Cells % 0.0 %
[2025-01-19 08:42] LABS: Alanine Aminotransferase 63 U/L (7-40); Albumin 4.5 g/dL (3.2-4.8); Alkaline Phosphatase 85 U/L (46-116); Anion Gap 13 (5-15); BUN/Creatinine Ratio 9.1 (10.0-20.0); Bilirubin, Total 1.3 mg/dL (0.2-1.0); Blood Urea Nitrogen < 5 mg/dL (9-23); Calcium 9.3 mg/dL (8.7-10.4); Carbon Dioxide 26 mmol/L (20-31); Chloride 102 mmol/L (98-107); Glucose 98 mg/dL (74-106); Potassium 3.2 mmol/L (3.5-5.1); Sodium 141 mmol/L (136-145); Total Protein 7.3 g/dL (5.7-8.2)
[2025-01-19 08:50] LABS: Ferritin 14.0 ng/mL (10-291)
[2025-01-19 08:57] LABS: Iron 24.0 ug/dL (50-170)
[2025-01-19 09:00] LABS: Total Iron Binding Capacity 376.0 ug/dL (250-425)
[2025-01-19 09:55] LABS: Hepatitis B Surface Antigen Negative (Negative)
[2025-01-19] MEDS ORDERED: PATIENTS OWN MEDICATION (Rosuvastatin Calcium (Crestor) 20 MG) PO SCH (10:00)
[2025-01-19] MEDS ORDERED: PATIENTS OWN MEDICATION (Amlodipine Besylate 1 TAB) PO SCH (10:00)
[2025-01-19] MEDS: LISINOPRIL 5 MG TAB PO SCH (10:05)
[2025-01-19] MEDS: PANTOPRAZOLE 40 MG/10 ML VIAL INJ IV SCH (10:07)
[2025-01-19 10:17] LABS: Hepatitis C Antibody Negative (Negative)
[2025-01-19] MEDS: POTASSIUM CHL 20 Meq TABLET PO ONE (11:37)
--- NOTE | 2025-01-19 12:30 | DVH ---
INDICATION: Hypertension TECHNIQUE: Multiple real-time sonographic images of the kidneys and bladder were obtained. Duplex Doppler evaluation including color Doppler and spectral/pulsed waveform analysis of the bilate ral renal arteries was performed. COMPARISON: None FINDINGS: The right kidney measures 10.4 cm in length. The right renal echogenicity, contour and cortical thick ness are within normal limits. No hydronephrosis or large masses/calculi are seen. The left kidney measures 11.6 cm in length. The left renal echogenicity, contour, and cortical thickn ess are within normal limits. No hydronephrosis or large masses/calculi are seen. Aorta peak systolic velocity, 74 cm/s Right renal artery peak systolic velocity, 90 cm/s (< 180 cm/s = normal). Left renal artery peak systolic velocity 117 cm/s (< 180 cm/s = normal). Right RAR : 1.2 (< 3.5, normal) Left RAR 1.6 (< 3.5, normal) Right RI: 0.6 (< 0.75, normal) Left RI: 0.7 (< 0.75, normal) IMPRESSION: No findings to suggest renal artery stenosis. *Tiffanie Sanchez Techniques in Noninvasive Vascular Diagnosis 2002
--- NOTE | 2025-01-19 15:54 | DVHPNRES ---
Progress Note Date Seen: Jan 19, 2025 Resident Creating Document: CHICA MCCONNELL RESIDENT Has the PT tested + for MRSA If YES, has PT been informed?: No Medical Necessity Reason Pt with a Central, PICC or Fol: No Subjective Review of Systems A 49-year-old female with past medical history of hypertension, hyperlipidemia, asthma, fibroids of the uterus presented to the ER with chief complain of chest pain. Patient complains that substernal chest pain started around noon, described as constant, sharp, 6/10 density, nonradiating, associated with palpitations. She denies shortness of breaths, dizziness, headache, nausea or vomiting. Patient reports this is the 1st time she has had such a pain. She complains of acid reflux since the last 2 days. Patient is currently on her menstrual cycle and complains of discomfort in her lower abdomen. She reports being compliant on her home medications. Previous hospitalization: December 2024 for hypertensive crisis PMHx: Hypertension, hyperlipidemia, asthma PSHx: section Social history: Occasional alcohol use. Denies smoking, drug use. Lives in house with family, full code, next to kin is post. Home medication: Rosuvastatin, lisinopril, amlodipine Allergic history: No known allergies ROS: 01/19/2025: Patient was seen and examined by me at the bedside. Patient reports that chest pain is not there anymore. USG of the liver showed a mass of 5.4 x 5.1 x 4.6 cm, hepatic steatosis and hepatomegaly. We counseled the patient regarding the mass and the need of a CT with IV of the abdomen and pelvis triple phase. Patient communicated understanding. We have also sent alpha fetoprotein, CEA and CA 19 9, results pending. Patient reports that she took OCPs in her early 20s for only 5 years. She also reports that she has no family history of cancer. Her father had heart failure around the age of 50. Objective vital signs Vital Sign Date Time Temp Pulse Resp B/P (MAP) Pulse Ox O2 Delivery O2 Flow Rate FiO2 01/19/25 12:30 98.2 82 16 132/83 (99) 97 98.2 01/19/25 08:00 Room Air* 0 21 Total Intake and Output 01/18/25 01/18/25 01/19/25 15:00 23:00 07:00 Intake Total 240 ml Balance 240 ml medications Current Medications Medications Dose Ordered Sig/Samara Route Start Time Stop Time Status Last Admin Dose Admin Ondansetron HCl 4 mg Q4HP PRN IV 01/18/25 22:30 Morphine Sulfate 2 mg Q4HPRN PRN IV 01/18/25 22:30 Enoxaparin Sodium 40 mg DAILY SC 01/18/25 22:30 01/19/25 10:07 40 MG Ergocalciferol 50,000 unit Q7D PO 01/19/25 00:30 01/19/25 02:48 50,000 UNIT Lisinopril 2.5 mg DAILY PO 01/19/25 10:00 01/19/25 10:05 2.5 MG Patient Own Medication 1 tab DAILY PO 01/19/25 10:00 UNV Patient Own Medication 20 mg DAILY PO 01/19/25 10:00 UNV Amlodipine Besylate 10 mg DAILY PO 01/19/25 10:00 01/19/25 10:07 10 MG Atorvastatin Calcium 40 mg HS PO 01/19/25 22:00 Pantoprazole Sodium 40 mg DAILY IV 01/19/25 10:00 01/19/25 10:07 40 MG Examination General: Patient alert and oriented in person, place and time. Patient following commands. HEENT: Normocephalic, atraumatic, moist mucous membranes Respiratory/pulmonary: Clear lungs bilaterally, vesicular murmurs present in almost all lung [place], no associated crackles or wheezes. Cardiovascular: Tachycardia. Normal heart sounds S1 and S2 with no associated murmurs Abdomen: Abdomen nondistended, there is no pain to palpation in any of the abdominal quadrants, no palpable masses. Extremities: There is no peripheral edema present at the lower extremities. Peripheral Pulses: 3+ Radial (R). 3+ Radial (L). 3+ Dorsalis pedis (R). 3+ Dorsalis pedis(L) Skin: No rashes or pruritus, there is no sacral edema present at this time. Neurological: Intact cranial nerves with no focal neurologic deficits laboratory and microbiology Laboratory Tests 01/19/25 07:45 Test 01/19/25 07:45 Range/Units Serum Glucose 98 74-106 mg/dL Labs and/or images reviewed: Labs reviewed by me, Image(s) reviewed by me Problem List/Assessment/Plan Problem List/Assessment/Plan Hypertensive crisis Essential hypertension -Chest pain, ruled out ACS -CXR shows no acute cardiopulmonary disease. -EKG shows shows sinus rhythm -Troponins WNL -Continue amlodipine 10 mg, lisinopril 2.5 in daily -Echocardiogram,pending -Renal artery ultrasound, aldosterone, renin, cortisol blood test ordered -Monitor on telemetry Hypokalemia -Supplemented -Continue monitoring Hyperlipidemia Transaminitis Hepatic steatosis Hepatic mass, rule out malignancy -On rosuvastatin 20 mg daily -Ultrasound shows hepatic steatosis, hepatomegaly, solid appearing light right hepatic lobe mass 5.4 X5.1 X4.6 cm -Ordered AFP, CEA, CA 19-9, pending -CT abdomen and pelvis with IV contrast triple phase ordered Vitamin-D deficiency Supplemented Obesity -Counseled the patient importance of adopting healthy lifestyle with diet and exercise in order to lose weight GI prophylaxis: Cardiorenal Diet DVT prophylaxis: Lovenox Diet: Protonix Goals of care discussed with the patient for 20 minutes: Full code status Case discussed with Dr. Solares, patient and nurse. Plan discussed with: Patient, Other (RN) My Orders My Orders Orders - CHICA MCCONNELL RESIDENT Procedure Category Date Status Time Beta Hcg, Quantitative LAB 01/19/25 In Process 15:07 Ct Ab Pelvis W Wo CT 01/19/25 Logged Con-Iv Only 15:07 Date of Service: Jan 19, 2025 Billing Provider: DORINDA SOLARES MD Common Visit Codes: 64385-[id number] INP/OBS CARE(HIGH) Secondary Visit Codes: 21820-[id number] CARE PLAN 30 MINUTES (20 minutes) Addendum Addendum Addendum I was physically present for the vides portions of the service provided to patient by THE RESIDENT. I have reviewed the documentation, discussed the case with resident and agree with the resident's documentation except as noted. Also the patient's clinical case was discussed with the patient's nurse. This medical document was created using an electronic medical record system with computerized dictation system. Although this document has been carefully reviewed, there might still be some phonetic and typographical errors. These areas are purely typographical due to imperfections of the software programs, and do not reflect any compromise in the patient's medical care. Late signature. CHICA MCCONNELL RESIDENT Jan 19, 2025 15:54 DORINDA SOLARES MD Jan 22, 2025 08:34
[2025-01-19] MEDS ORDERED: IOHEXOL 350 MG/ML 100ML IJ ONE (16:14)
--- NOTE | 2025-01-19 17:11 | DVH ---
Indication: liver mass Technique: CT axial images of the abdomen and pelvis are obtained with and without contrast. Coronal and sagittal reformats were obtained. Radiation Dose Information: CTDI volume is 9.99 mGy. Dose-length product is 4.61 mGy*cm Comparison: None FINDINGS: Lung bases demonstrate no pleural effusion. Adrenal glands, spleen, pancreas unremarkable. Hepatic steatosis. Right hepatic lobe peripherally hypervascular lesion measuring 4.3 x 4.8 x 6.2 cm that demonstrates increased enhancement on the venous and delayed images. No CT evidence for cholelithiasis. No hydronephrosis. Stomach is partially distended. Small bowel loops are normal in caliber. Moderate volume stool in the colon. Normal appendix. Abdominal aorta normal in caliber. Bladder partially distended. Enlarged uterus with multiple leiomyo mas including exophytic leiomyoma measuring 5.8 cm. No free pelvic fluid. No inguinal lymphadenopath y. Exostosis arising from the left pubic ramus measuring 3.4 cm. IMPRESSION: Limited evaluation without contrast. Right hepatic lobe hypervascular lesion that demonstrates increased enhancement on the delayed sequen sumaya most consistent with hemangioma. Hepatic steatosis and hepatomegaly. Enlarged uterus with multiple leiomyomas measuring up to 5.8 cm. Exostosis arising from the left pubic ramus measuring 3.4 cm. Recommend MRI pelvis with and without c ontrast in the nonemergent setting to evaluate the cartilaginous cap. Other findings as described
[2025-01-19] MEDS: ATORVASTATIN 20 MG TAB PO SCH (22:00)
[2025-01-20 01:00] VITALS: BP 128/90; PULSE 86; RESP 17; TEMP 98.4; O2SAT 98
[2025-01-20 05:00] VITALS: BP 110/74; PULSE 75; RESP 16; TEMP 98.2; O2SAT 97
[2025-01-20 06:21] LABS: Chloride 104 mmol/L (98-107); Potassium 3.5 mmol/L (3.5-5.1); Sodium 142 mmol/L (136-145)
[2025-01-20 06:22] LABS: Anion Gap 12 (5-15); Calcium 9.7 mg/dL (8.7-10.4); Carbon Dioxide 26 mmol/L (20-31)
[2025-01-20 06:26] LABS: Hemoglobin 9.7 g/dL (12.2-16.2)
[2025-01-20 06:27] LABS: Glucose 96 mg/dL (74-106)
[2025-01-20 06:29] LABS: Hematocrit 30.6 % (36.0-46.0); Mean Corpuscular Hemoglobin 26.9 pg (28.0-32.0); Mean Corpuscular Volume 84.5 fL (80.0-100.0); Nucleated Red Blood Cells % 0.0 %
[2025-01-20 06:31] LABS: BUN/Creatinine Ratio 8.2 (10.0-20.0); Blood Urea Nitrogen < 5 mg/dL (9-23)
[2025-01-20 08:00] VITALS: PULSE 76; PULSE 77; RESP 17; O2SAT 96
[2025-01-20 09:00] VITALS: BP 132/90; PULSE 81; RESP 18; TEMP 98; O2SAT 100
[2025-01-20] MEDS ORDERED: FER325T PO (11:54)
[2025-01-20 13:00] VITALS: BP 133/88; PULSE 96; RESP 20; TEMP 98.1; O2SAT 98
--- NOTE | 2025-01-20 13:42 | DVHDSRES ---
Discharge Summary Date of Admission Resident Creating Document: CHICA MCCONNELL RESIDENT Jan 18, 2025 at 22:27 Date of Discharge: Jan 20, 2025 Admitting Diagnosis Chest pain Labs/Diagnostic Data: Laboratory Results Test 01/20/25 05:30 01/19/25 15:25 01/19/25 07:45 01/19/25 04:15 White Blood Count 3.0 10^3/uL (4.4-10.8) Red Blood Count 3.62 10^6/uL (4.0-5.20) Hemoglobin 9.7 g/dL (12.2-16.2) Hematocrit 30.6 % (36.0-46.0) Mean Corpuscular Volume 84.5 fL (80.0-100.0) Mean Corpuscular Hemoglobin 26.9 pg (28.0-32.0) Mean Corpuscular Hemoglobin Concent 31.8 g/dL (32.0-36.0) Red Cell Distribution Width 18.8 % (11.8-14.3) Platelet Count 266 10^3/uL (140-450) Mean Platelet Volume 7.5 fL (6.9-10.8) Neutrophils (%) (Auto) 53.1 % (37.0-80.0) Lymphocytes (%) (Auto) 28.7 % (10.0-50.0) Monocytes (%) (Auto) 9.6 % (0.0-12.0) Eosinophils (%) (Auto) 7.7 % (0.0-7.0) Basophils (%) (Auto) 0.9 % (0.0-2.0) Neutrophils # (Auto) 1.6 10 ^3/uL (1.6-8.6) Lymphocytes # (Auto) 0.9 10 ^3/uL (0.4-5.4) Monocytes # (Auto) 0.3 10 ^3/uL (0-1.3) Eosinophils # (Auto) 0.2 10 ^3/uL (0-0.8) Basophils # (Auto) 0 10 ^3/uL (0-0.2) Nucleated Red Blood Cells 0.0 % Sodium Level 142 mmol/L (136-145) Potassium Level 3.5 mmol/L (3.5-5.1) Chloride Level 104 mmol/L (98-107) Carbon Dioxide Level 26 mmol/L (20-31) Anion Gap 12 (5-15) Blood Urea Nitrogen < 5 mg/dL (9-23) Creatinine 0.61 mg/dL (0.550-1.02) Glomerular Filtration Rate Calc 110 mL/min (>90) BUN/Creatinine Ratio 8.2 (10.0-20.0) Serum Glucose 96 mg/dL (74-106) Calcium Level 9.7 mg/dL (8.7-10.4) Cortisol PM Sample 16.65 ug/dL (3.44-16.76) Haptoglobin 144 mg/dL (42-296) Iron Level 24 ug/dL (50-170) Total Iron Binding Capacity 376 ug/dL (250-425) Percent Iron Saturation 6.4 % (15-50) Ferritin 14.0 ng/mL (10-291) Total Bilirubin 1.3 mg/dL (0.2-1.0) Aspartate Amino Transferase (AST) 56 U/L (13-40) Alanine Aminotransferase (ALT) 63 U/L (7-40) Alkaline Phosphatase 85 U/L (46-116) B-Type Natriuretic Peptide 9.50 pg/mL (0-100) Total Protein 7.3 g/dL (5.7-8.2) Albumin 4.5 g/dL (3.2-4.8) Tumor Marker Alpha Fetoprotein 9.9 ng/mL (0.0-6.4) Carcinoembryonic Antigen < 0.50 ng/mL (<=5.0) CA 19-9 Antigen <2 U/mL (0-35) Folic Acid 25.69 ng/mL (>5.38) Beta HCG, Quantitative 0.5 mIU/mL (1.5-4.2) Cortisol AM Sample 12.77 ug/dL (5.27-22.45) Hepatitis A IgM Antibody Negative Hepatitis B Surface Antigen Negative (Negative) Hepatitis B Core IgM Antibody Negative (Negative) Hepatitis C Antibody Negative (Negative) Urine Color Light-brown (Yellow) Urine Clarity Clear (Clear) Urine pH 7.5 (5.0-9.0) Urine Specific [place] 1.003 (1.001-1.035) Urine Protein Trace (Negative) Urine Ketones Negative (Negative) Urine Blood 3+ /uL (Negative) Urine Nitrite Negative (Negative) Urine Bilirubin Negative (Negative) Urine Urobilinogen Normal mg/dL (Negative) Urine Leukocyte Esterase Negative /uL (Negative) Urine RBC 69 /hpf (0 - 4) Urine Microscopic WBC < 1 /HPF (0-5) Urine Squamous Epithelial Cells Few /hpf (<5) Urine Bacteria None seen /hpf (None Seen) Urine Glucose Normal mg/dL (Normal) Urine Test Negative (Negative) Urine Opiates Screen Neg (NEGATIVE) Urine Fentanyl Screen Neg (NEGATIVE) Urine Barbiturates Screen Neg (NEGATIVE) Urine Phencyclidine Screen Neg (NEGATIVE) Urine Amphetamines Screen Neg (NEGATIVE) Urine Benzodiazepines Screen Neg (NEGATIVE) Urine Cocaine Screen Neg (NEGATIVE) Urine Cannabinoids Screen Neg (NEGATIVE) Test 01/18/25 21:18 01/18/25 16:40 01/18/25 15:49 Prothrombin Time 11.3 sec (9.3-11.8) Prothrombin Time INR 1.07 (0.9-1.15) Activated Partial Thromboplast Time 24.8 SEC (24.5-34.5) Hemoglobin A1c 4.7 % A1C (<5.7) Lactic Acid Level 0.7 mmol/L (0.4-2.0) Phosphorus Level 3.1 mg/dL (2.4-5.1) Magnesium Level 1.8 mg/dL (1.6-2.6) Direct Bilirubin 0.4 mg/dL (<0.3) C-Reactive Protein High Sensitivity 0.06 mg/dL (<1.0) Triglycerides Level 91 mg/dL (< 150) Cholesterol Level 153 mg/dL (< 200) LDL Cholesterol 36 mg/dL (< 100) HDL Cholesterol 95 mg/dL (40-59) Lipase 43 U/L (12-53) Vitamin B12 Level 593 pg/mL (211-911) Vitamin D 25-Hydroxy 48.2 ng/mL (30.0-100) Thyroid Stimulating Hormone (TSH) 2.23 uIU/mL (0.55-4.78) Troponin I High Sensitivity < 3 ng/L (</=34) Reticulocyte Count (auto) 2.58 % (0.5-1.5) D-Dimer, Quantitative 0.22 mg/L FEU (0.0-0.49) Other Laboratory Tests 01/20/25 05:30 Brief Hx & Hospital Course: A 49-year-old female with past medical history of hypertension, hyperlipidemia, asthma, fibroids of the uterus presented to the ER with chief complain of chest pain. Patient complains that substernal chest pain started around noon, described as constant, sharp, 6/10 density, nonradiating, associated with palpitations. She denies shortness of breaths, dizziness, headache, nausea or vomiting. Patient reports this is the 1st time she has had such a pain. She complains of acid reflux since the last 2 days. Patient is currently on her menstrual cycle and complains of discomfort in her lower abdomen. She reports being compliant on her home medications. Previous hospitalization: December 2024 for hypertensive crisis PMHx: Hypertension, hyperlipidemia, asthma PSHx: section Social history: Occasional alcohol use. Denies smoking, drug use. Lives in house with family, full code, next to kin is post. Home medication: Rosuvastatin, lisinopril, amlodipine Allergic history: No known allergies Brief history of hospitalization: Patient came in for chest pain and we did an ekg which showed sinus rhythm. troponin levels were seen which came within normal limits. Blood pressure was elevated at 179/ 108 mmHg. We gave her amlodipine 10 mg Stat to decrease the blood pressure. During hospitalization we have been monitoring her blood pressure and continued with amlodipine 5 mg and lisinopril 2.5 mg to control her blood pressure. chest xray showed no acute cardiopulmonary disease. we kept the patient on tele monitor and monitored for an changes. A renal artery usg was done which showed no renal artery stenosis. Serum cortisol levels were normal as well. The chest pain that the patient had is most likely due to hypertensive crisis. During routine lab testing we saw that the patient's AST and ALT were raised at 56 and 63 which is why we did a liver ultrasound. Ultrasound showed hepatic steatosis, hepatomegaly, solid appearing light right hepatic lobe mass 5.4 X5.1 X4.6 cm. Due to concerns of malignancy we ordered AFP, CEA, CA 19-[address] abdomen and pelvis with IV contrast triple phase. CEA and CA 19 9 were negative and alpha fetoprotein was slightly increased at 9.9. CT scan showed Right hepatic lobe hypervascular lesion that demonstrates increased enhancement on the delayed sequences most consistent with hemangioma. we counseled the patient regarding follow up with Gastroenterology outpatient after referral from PCP. We have given the patient copies of her tumor marker reports as well as imaging reports. Patient is now stable for discharge and she has communicated understanding and agreed to the discharge plan. Patient is iron levels were low which was seen during the labs and CT showed uterine fibroids, patient also reported heavy menses, we are sending the patient home with ferrous sulfate 325 mg daily. Patient has communicated understanding of the need of iron supplement. She is to follow up outpatient for uterine fibroids. Physical examination on the day of discharge: General Appearance: Alert, Oriented X3, Cooperative, Not in acute distress HEENT: Atraumatic, Mucous membranes moist/pink Respiratory: Clear to auscultation, Normal air movement, No added sounds Cardiovascular: Regular rate, Normal S1, Normal S2, No murmurs Abdominal: Active bowel sounds, Soft, no distention, no tenderness Extremities: No edema, Normal pulses, No tenderness/swelling Skin: No Significant rash, except past surgical scars Neuro: Normal speech, sensorimotor deficits none Psych/Mental Status: Mental status NL, Mood NL Discharge discussed with Dr. Solares Condition at Discharge: Stable Final Diagnosis/Problems List Hypertensive crisis Essential hypertension Chest pain, ruled out ACS; due to hypertensive crisis Hypokalemia Hyperlipidemia Transaminitis Hepatic steatosis Hepatic mass, ruled out malignancy, presence of Hemangioma Vitamin-D deficiency Enlarged uterus with multiple leiomyoma Obesity Mild aortic root dilatation Discharge Disposition: Home Discharge Instruct/Medications Diet: Consistent carbohydrate, Cardiac 2g Na,low cholest Activity: No Restrictions, As Tolerated Follow Up/Referral: Follow up with primary care physician in 10 days Follow up outpatient clinic for Gastroenterology consult for liver mass with reports provided; needs referral from her PCP Will call the patient to provide her with a copy of echocardiogram in order to follow up with Cardiology; needs referral from her PCP Medications: ferrous sulfate 325 mg p.o. daily continue all other home medications Scheduled Amlodipine Besylate (Amlodipine Besylate), 1 TAB PO DAILY, (Reported) Ergocalciferol (Vitamin D 00217 Unit), 50,000 UNIT PO Q7D Ferrous Sulfate (Ferrous Sulfate), 325 MG PO DAILY Lisinopril (Lisinopril), 2.5 MG PO DAILY Rosuvastatin Calcium (Crestor), 20 MG PO DAILY Scheduled PRN Ibuprofen Micronized (Ibuprofen), 600 MG PO Q6HPRN PRN Discontinued Medications Sulfamethoxazole W/Trimethopri (Bactrim Ds Tablet), 1 TAB PO BID Discharge Statement: "Patient was advised to return to the ER or call 911 if any headaches, dizziness, shortness of breath, chest pain, abdominal pain, bleeding, fevers, or worsening of medical condition. Patient was counseled about treatment plan, medications, possible side effects, patientverbalized understanding. All questions were answered to the best of my ability. This discharge took greater then 30 minutes in planning, reviewing documentation, counseling the patient, and discussing with other team members." ASSESSMENT ASSESSMENT Assessment Date of Service: Jan 20, 2025 Billing Provider: DORINDA SOLARES MD Common Visit Codes: 68915-TZD/OBS DISCH DAY >30min Addendum Addendum Addendum I was physically present for the vides portions of the service provided to patient by THE RESIDENT. I have reviewed the documentation, discussed the case with resident and agree with the resident's documentation except as noted. Also the patient's clinical case was discussed with the patient's nurse. This medical document was created using an electronic medical record system with computerized dictation system. Although this document has been carefully reviewed, there might still be some phonetic and typographical errors. These areas are purely typographical due to imperfections of the software programs, and do not reflect any compromise in the patient's medical care. Late signature. CHICA MCCONNELL RESIDENT Jan 20, 2025 13:42 DORINDA SOLARES MD Jan 22, 2025 08:47
[2025-01-20 14:27] VITALS: BP 128/84; PULSE 82; RESP 18; TEMP 97.8; O2SAT 98
--- NOTE | 2025-01-20 15:25 | DVHSR ---
APPROVED REPORT EXAM: Two-dimensional and M-mode echocardiogram with Doppler and color Doppler. Blood Pressure: 138/100 mmHg INDICATION r/o HF RISK FACTORS Height: 5'3, Weight: 170 DIMENSIONS LVDd4.0 (3.8-5.7cm)LA (2D)3.9 (1.9-4.0cm)Aortic Root2.8 (2.0-3.7cm) LVDs1.9 (2.5-4.0cm)LA (MM) (1.9-4.0cm)Aortic Cusp Exc1.6 (1.5-2.0cm) EF (%) 65.0 (55-70%)Rt. Atrium2.5 (1.9-4.0cm)Asc. Aorta cm IVSd0.9 (0.7-1.1cm)RV (D)3.0 (1.8-2.4cm) PWd0.8 (0.7-1.1cm) Mitral Valve MitralMitral Stenosis E wave0.80m/sMV Mean GR.mmHg A wave0.82m/sMV Peak GR.116mmHg E/A ratio1.02D MVAcm2 DECEL [id number] 1/2 [place] Aortic Valve Aortic ValveAortic Stenosis V11.20m/Shobha Mean GR.6mmHg V21.64m/Shobha Peak GR.11mmHg LVOT Diameter1.9 (1.8-2.4cm)Doppler AVA2.07cm2 Pulmonic Valve V20.87m/s Other Information Technically limited study due to Conclusion Technically good study. Sinus rhythm. Mild aortic root enlargement. Valves are normal. EF of 65-70% with normal RV function. Unremarkable Doppler. Pericardial effusion masses or vegetations.
== END 2025-01-20 15:11 | disposition home or self-care (01) | DRG 305 ==
LOC: ER 15:23 → OVERFLOW 22:27 → TELE-WESTW 01-19 01:55
PROVIDERS: ADMIT Internal Medicine Pulmonary Disease; ATTEND Internal Medicine
DX: I16.9 Hypertensive crisis, unspecified (principal); E87.6 Hypokalemia; I10 Essential (primary) hypertension; I51.3 Intracardiac thrombosis, not elsewhere classified; J45.909 Unspecified asthma, uncomplicated; E78.5 Hyperlipidemia, unspecified; R74.01 Elevation of levels of liver transaminase levels; K76.0 Fatty (change of) liver, not elsewhere classified; R16.0 Hepatomegaly, not elsewhere classified; E55.9 Vitamin D deficiency, unspecified; E66.9 Obesity, unspecified; Z68.31 Body mass index [BMI] 31.0-31.9, adult; N85.2 Hypertrophy of uterus
CPT/HCPCS: 36415; 71046; 74178; 76705; 80048; 80053; 80061; 80074; 80076; 80307; 81001; 81025; 82088; 82105; 82306; 82378; 82533; 82607; 82728; 82746; 83010; 83036; 83540; 83550; 83605; 83690; 83735; 83835; 83880; 84100; 84244; 84443; 84484; 84702; 85025; 85045; 85379; 85610; 85730; 86141; 86301; 93005; 93306; 93975; 99291; G0378; J2470